=== PATIENT | female | born 1970 | race African-American/Black ===

== ENCOUNTER 2017-07-27 07:47 | Day surgery (SDC) | payer OTHER ==
[2017-07-27 08:03] VITALS: BMI 43.1
--- NOTE | 2017-07-27 08:42 | PDOC ---
History of Present Illness <Joseph Diego - Last Filed: 07/27/17 08:32> - History of Present Illness Initial Comments: 07/27/17 08:51 The patient is a 47 year old female, with a significant past medical history of asthma, biliary colic, renal colic, and kidney stones s/p stent, who presents to the ED for increased right lower abdominal pain secondary to known abdominal hernia sent by Dr. Iglesia Morocho for hernia repair today. The patient states she has some tenderness over her right lower quadrant near her hernia site. Secondarily, the patient states she has been experiencing vaginal bleeding for 2 days, suprapubic cramping on the first day, but denies having a period for the past seven months. The patient also reports she has had her renal stent for about a year secondary to moving and changing her urologist from Dr. Hidalgo to Dr. Garner. She states she is schedule for stent removal with Dr. Garner sometime next week. She states she has been NPO since midnight. She denies chest pain, shortness of breath, headache and dizziness. She denies fever, chills, nausea, vomit, diarrhea and constipation. She denies dysuria, frequency, urgency and hematuria. Allergies: penicillin and bactrim Past surgical history: renal stent Social history: Pt denies tobacco use or EtOH consumption PCP: Dr. Jesus Manuel Hidalgo Urologist: Dr. Garner <Joann West - Last Filed: 07/27/17 08:52> - General Chief Complaint: Pain, Acute Stated Complaint: R SIDED ABD PAIN Time Seen by Provider: 07/27/17 08:09 Past History - Past Medical History Anemia: Yes Cancer: No Cardiac Disorders: No CVA: No COPD: Yes (asthma) CHF: No Dementia: No Diabetes: No GI Disorders: No Disorders: Yes (KIdney stones) HTN: No Hypercholesterolemia: Yes Liver Disease: No Seizures: No Thyroid Disease: No - Surgical History Abdominal Surgery: No Appendectomy: No Cardiac Surgery: No Cholecystectomy: No Lung Surgery: No Neurologic Surgery: No Orthopedic Surgery: No - Immunization History Immunization Up to Date: Yes - Suicide/Smoking/Psychosocial Hx Smoking Status: No Smoking History: Never smoked Have you smoked in the past 12 months: No Number of Cigarettes Smoked Daily: 0 Information on smoking cessation initiated: No Hx Alcohol Use: No Drug/Substance Use Hx: No Substance Use Type: None <Joseph Diego - Last Filed: 07/27/17 08:32> <Joann West - Last Filed: 07/27/17 08:52> - Past Medical History Allergies/Adverse Reactions: Allergies Allergy/AdvReac Type Severity Reaction Status Date / Time Penicillins Allergy Mild Verified 07/27/17 07:55 sulfamethoxazole Allergy Mild Verified 07/27/17 07:55 [From Bactrim] trimethoprim [From Bactrim] Allergy Mild Verified 07/27/17 07:55 Home Medications: Ambulatory Orders Ciprofloxacin [Cipro (Restricted To Id)] 250 mg PO BID 12/26/15 Oxycodone HCl/Acetaminophen [Percocet 10-325 mg Tablet] 1 each PO Q6H PRN Review of Systems - Review of Systems Constitutional: No: Chills, Fever Respiratory: No: Cough, Shortness of Breath ABD/GI: Yes: See HPI. No: Constipated, Diarrhea : Yes: See HPI (vaginal spotting over last 24h). No: Dysuria, Frequency Integumentary: No: Bruising All Other Systems: Reviewed and Negative <Joseph Diego - Last Filed: 07/27/17 08:32> *Physical Exam - Vital Signs Last Vital Signs Temp Pulse Resp BP Pulse Ox 98.3 F 73 16 131/83 98 07/27/17 07:56 07/27/17 07:56 07/27/17 07:56 07/27/17 07:56 07/27/17 07:56 <Joseph Diego - Last Filed: 07/27/17 08:32> - Vital Signs Last Vital Signs Temp Pulse Resp BP Pulse Ox 98.3 F 73 16 131/83 98 07/27/17 07:56 07/27/17 07:56 07/27/17 07:56 07/27/17 07:56 07/27/17 07:56 - Physical Exam Comments: 07/27/17 08:52 GENERAL: The patient is awake, alert, and fully oriented, obese. in no acute distress. HEAD: Normal with no signs of trauma. EYES: Pupils equal, round and reactive to light, extraocular movements intact, sclera anicteric, conjunctiva clear with no pallor. ENT: Ears normal, nares patent, oropharynx clear without exudates. Moist mucous membranes. NECK: Normal range of motion, supple without lymphadenopathy, JVD, or masses. LUNGS: Breath sounds equal, clear to auscultation bilaterally. No wheeze/ crackles. HEART: Regular rate and rhythm, normal S1 and S2 without murmur or rub. ABDOMEN: (+) mild right mid to lower quadrant tenderness to palpation. No incarcerated hernia palpable. Soft/nondistended. BS wnl. No guarding or rebound. No palpable masses. No hepatosplenomegaly. EXTREMITIES: Normal range of motion, no edema. No clubbing or cyanosis. No cords, erythema, or tenderness. NEUROLOGICAL: Cranial nerves II through XII grossly intact. Normal speech, normal gait. PSYCH: Normal mood, normal affect. SKIN: Warm, Dry, normal turgor, no rashes or lesions noted. <Joann West - Last Filed: 07/27/17 08:52> Medical Decision Making - Medical Decision Making 07/27/17 08:34 A portion of this note was documented by scribe services under my direction. I have reviewed the details of the note, within reason, and agree with the documentation with the following case summary and management plan written by me. 47-year-old female presents with worsening right lower quadrant pain from known hernia, has been followed by Dr. Morocho with plans for operative intervention given increasing symptoms. On ROS, notes vaginal spotting over the last 24h, painless. LMP 7 months ago. Has indwelling ureteral stent for over one year 2/2 h/o nephrolithiasis, scheduled to have removal with Dr. Cruz. VSS well appearing, obese soft/nd. tender R mid and RLQ, no guarding/rebound no cvat pelvic exam deferred, no bleeding now 47y/o F with worsening symptoms of known hernia, no evidence of obstruction or incarceration on exam. Followed by Dr. Morocho, for OR today. Incidentally noted was breakthrough vaginal spotting since yesterday, LMP 7 months ago. 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 Morocho made aware. labs, ua iv access Accepted for OR by Dr. Morocho <Joseph Diego - Last Filed: 07/27/17 08:32> *DC/Admit/Observation/Transfer - Discharge Dispostion Admit: Yes <Joseph Diego - Last Filed: 07/27/17 08:32> - Attestations Scribe Attestion: 07/27/17 08:52 Documentation prepared by Joann West, acting as medical planner for Joseph Diego MD, <Joann West - Last Filed: 07/27/17 08:52> Diagnosis at time of Disposition: Abdominal hernia Qualifiers: Hernia type: unspecified Obstruction and gangrene presence: without obstruction or gangrene Recurrence: recurrent Qualified Code(s): K45.8 - Other specified abdominal hernia without obstruction or gangrene - Discharge Dispostion Condition at time of disposition: Fair - Referrals Referrals: Jesus Manuel Hidalgo MD [Primary Care Provider] - - Patient Instructions - Post Discharge Activity
[2017-07-27 09:48] LABS: BASOPHIL 0.4 % (0-2.0); EOSINOPHIL 3.2 % (0-4.5); MCH 24.7 pg (25.7-33.7); MCHC 31.8 g/dl (32.0-36.0); MEAN CELL VOLUME 77.8 fl (80-96); MEAN PLT VOLUME 8.3 fl (7.5-11.1); PLATELET COUNT 238 K/MM3 (134-434); RDW 18.2 % (11.6-15.6); WHITE BLOOD COUNT 5.6 K/mm3 (4.0-10.0)
[2017-07-27 10:10] LABS: INR 1.04 (0.82-1.09); PROTHROMBIN TIME (PATIENT) 11.8 SEC (9.98-11.88)
[2017-07-27 10:13] LABS: ACTIVATED PTT 34.4 SECONDS (26.9-34.4)
[2017-07-27 10:40] LABS: CALCIUM 8.9 mg/dL (8.5-10.1)
[2017-07-27 10:46] LABS: ALK PHOS 65 U/L (45-117); ANION GAP 11 (8-16); BILIRUBIN,TOTAL 0.2 mg/dL (0.2-1.0); CO2 23 mmol/L (21-32); CREATININE 1.8 mg/dL (0.55-1.02); GLUCOSE,RANDOM 95 mg/dL (74-106); SGOT/AST 8 U/L (15-37); SGPT/ALT 14 U/L (12-78)
--- NOTE | 2017-07-27 11:11 | CONSULT ---
Consult Consult Specialty:: Surgery Reason for Consultation:: Abdominal pain - History of Present Illness Chief Complaint: Abdominal pain History of Present Illness: 47 female presents to the ER for abdominal pain Mild nausea No vomiting Pain near her umbilicus Previously noted to have an umbilical hernia - History Source History Provided By: Patient Limitations to Obtaining History: No Limitations - Alcohol/Substance Use Hx Alcohol Use: No - Smoking History Smoking history: Never smoked Have you smoked in the past 12 months: No Aproximately how many cigarettes per day: 0 Home Medications - Allergies Allergies/Adverse Reactions: Allergies Allergy/AdvReac Type Severity Reaction Status Date / Time Penicillins Allergy Mild Verified 07/27/17 07:55 sulfamethoxazole Allergy Mild Verified 07/27/17 07:55 [From Bactrim] trimethoprim [From Bactrim] Allergy Mild Verified 07/27/17 07:55 - Home Medications Home Medications: Ambulatory Orders Oxycodone HCl/Acetaminophen [Percocet 10-325 mg Tablet] 1 each PO Q6H PRN Docusate Sodium [Colace -] 100 mg PO TID #90 capsule 07/27/17 Oxycodone HCl/Acetaminophen [Percocet 5-325 mg Tablet] 1 - 2 tab PO Q6H #28 tab MDD 4 07/27/17 Family Disease History - Family Disease History Family History: Unremarkable Review of Systems - Review of Systems Constitutional: denies: Chills, Fever HENT: reports: No Symptoms Neck: reports: No Symptoms Cardiovascular: reports: No Symptoms Respiratory: reports: No Symptoms Gastrointestinal: reports: Abdominal Pain, Nausea Neurological: denies: Change in LOC Pain Intensity: 3 Physical Exam Vital Signs: Vital Signs Temperature 98.3 F 07/27/17 07:56 Pulse Rate 73 07/27/17 07:56 Respiratory Rate 16 07/27/17 07:56 Blood Pressure 131/83 07/27/17 07:56 O2 Sat by Pulse Oximetry (%) 98 07/27/17 07:56 Constitutional: Yes: Calm HENT: Yes: WNL Neck: Yes: Supple Cardiovascular: Yes: Regular Rate and Rhythm Respiratory: Yes: CTA Bilaterally Gastrointestinal: Yes: Soft, Tenderness (Near umbilicus, + umbilical hernia with tenderness) Neurological: Yes: Alert, Oriented Labs: CBC, BMP 07/27/17 09:42 Problem List - Problems (1) Umbilical hernia Code(s): K42.9 - UMBILICAL HERNIA WITHOUT OBSTRUCTION OR GANGRENE Assessment/Plan Umbilical hernia with tenderness For repair with mesh
[2017-07-27 11:46] LABS: URINE APPEARANCE CLOUDY; URINE BILIRUBIN NEGATIVE (NEGATIVE); URINE BLOOD 3+ (NEGATIVE); URINE COLOR YELLOW; URINE GLUCOSE (UA) NEGATIVE (NEGATIVE); URINE KETONE NEGATIVE (NEGATIVE); URINE NITRITE POSITIVE (NEGATIVE); URINE UROBILINOGEN NEGATIVE mg/dL (0.2-1.0)
[2017-07-27 11:54] LABS: URINE PROTEIN 1+ (NEGATIVE)
[2017-07-27 12:32] LABS: URINE BACTERIA MANY /hpf (NONE SEEN); URINE RBC 649; URINE WBC 197
[2017-07-27] MEDS ORDERED: BUPIVACAINE HCL/PF 0.5% (5MG/ML) 10 ML VIAL ONE (14:18)
[2017-07-27] MEDS ORDERED: MIDAZOLAM HCL 2 MG/2 ML SINGLE DOSE VIAL ONE (14:21)
[2017-07-27] MEDS ORDERED: ROCURONIUM BROMIDE 50 MG/5 ML VIAL ONE (14:22)
[2017-07-27] MEDS ORDERED: PROPOFOL 20 ML ONE (14:22)
[2017-07-27] MEDS ORDERED: CLINDAMYCIN 900 MG PREMIX BAG IVPB ONE (14:45)
[2017-07-27] MEDS ORDERED: CLINDAMYCIN PHOSPHATE 600 MG/4 ML VIAL ONE (14:45)
[2017-07-27] MEDS ORDERED: ePHEDrine SULFATE 50 MG/1 ML AMPULE ONE (14:50)
[2017-07-27] MEDS ORDERED: LEVOFLOXACIN IVPB ONE (15:03)
[2017-07-27] MEDS ORDERED: BUPIVACAINE HCL/PF 0.5% (5MG/ML) 10 ML VIAL IJ ONE (17:03)
[2017-07-27] MEDS ORDERED: ONDANSETRON 4 MG/2 ML VIAL ONE (17:14)
--- NOTE | 2017-07-27 17:33 | OP ---
Operative Note - Note: Operative Date: 07/27/17 Pre-Operative Diagnosis: umbilical hernia Operation: robotic assisted umbilical hernia repair with mesh, Lysis of adhesion Surgeon: Iglesia Morocho Welding Production Supervisor: Yolie Wellington Anesthesia: General Estimated Blood Loss (mls): 30 Fluid Volume Replaced (mls): 1,200 Operative Report Dictated: Yes
--- NOTE | 2017-07-27 17:37 | SURG ---
Surgery Retail Service Representative Note Retail Service Representative: Yolie Wellington PA-C Date of Service: 07/27/17 Diagnosis: umbilical hernia Procedure: robotic assisted umbilical hernia repair with mesh, lysis of adhesions I was present for the entirety of the operative procedure. For further detail, please refer to operative report. Visit type - Case Type Case Type: ED Admission - Emergency Emergency Visit: Yes Care time: The patient presented to the Emergency Department on the above date and was hospitalized for further evaluation of their emergent condition. - New patient This patient is new to me today: Yes Date on this admission: 07/27/17
[2017-07-27] MEDS ORDERED: ONDANSETRON 4 MG/2 ML VIAL IVPUSH PRN (17:43)
[2017-07-27] MEDS ORDERED: D5-1/2NS+20 MEQ KCL - 20 MEQ/1,000 ML INFUS.BAG IV SCH (17:45)
[2017-07-27] MEDS ORDERED: oxyCODONE HCL 5 MG TABLET PO PRN (17:46)
[2017-07-27 17:54] LABS: URINE LEUK ESTERASE 3+ (NEGATIVE)
[2017-07-27] MEDS ORDERED: METOCLOPRAMIDE HCL INJECTION 10 MG/2 ML VIAL ONE (17:58)
[2017-07-27] MEDS ORDERED: METOCLOPRAMIDE HCL INJECTION 10 MG/2 ML VIAL IVPUSH ONE (18:20)
[2017-07-27] MEDS ORDERED: HYDROmorphone HCL CARPU-JECT 1 MG/1 ML DISP.SYRIN IVPB PRN (21:07)
[2017-07-28] MEDS: ACETAMINOPHEN 325 MG TABLET (FP) PO PRN ×2 (03:13→08:47)
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
[2017-07-28 11:05] VITALS: PULSE 78
[2017-07-28 12:39] VITALS: BP 123/66; TEMP 98
== END 2017-07-28 11:45 | disposition home or self-care (01) ==
LOC: JER 07:47 → JASUSAT 08:43 → J8W 21:33 → JASUSAT 07-28 11:45
PROVIDERS: ATTEND Surgery
PROC: 8E0W4CZ Robotic Assisted Procedure of Trunk Region, Percutaneous Endoscopic Approach (ICD-10-PCS; 2017-07-27)
PROC: 0WUF4JZ Supplement Abdominal Wall with Synthetic Substitute, Percutaneous Endoscopic Approach (ICD-10-PCS; principal; 2017-07-27 13:00)
DX: K42.9 Umbilical hernia without obstruction or gangrene (principal)
CPT/HCPCS: 49652; S2900; 36415; 80053; 81003; 81015; 84703; 85025; 85610; 85730; 86850; 86900; 86901; 94760; 99285-25

== ENCOUNTER 2017-09-19 05:56 | Emergency (ER) | payer OTHER ==
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
[2017-09-19 06:43] VITALS: BP 152/94; PULSE 80; TEMP 98.7; BMI 41.8
[2017-09-19] MEDS ORDERED: FLUORESCEIN NA 1 EA STRIP OD ONE (09:45)
[2017-09-19] MEDS ORDERED: FLUORESCEIN NA 1 EA STRIP ONE (09:48)
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
== END 2017-09-19 11:38 | disposition home or self-care (01) ==
LOC: JER 05:56
DX: S09.8XXA Other specified injuries of head, initial encounter (principal); H54.61 Unqualified visual loss, right eye, normal vision left eye; Y04.2XXA Assault by strike against or bumped into by another person, initial encounter; Y93.89 Activity, other specified; Y92.030 Kitchen in apartment as the place of occurrence of the external cause; Y99.8 Other external cause status; Y07.03 Male partner, perpetrator of maltreatment and neglect; J45.909 Unspecified asthma, uncomplicated; E78.00 Pure hypercholesterolemia, unspecified; Z87.442 Personal history of urinary calculi
CPT/HCPCS: 70450-TC; 70486-TC; 99283-25

== ENCOUNTER 2018-01-20 10:54 | Inpatient (IN) | payer OTHER ==
[2018-01-19 14:19] VITALS: BMI 39.9
[2018-01-20] MEDS ORDERED: PROPOFOL 20 ML ONE (12:01)
[2018-01-20] MEDS ORDERED: fentaNYL CITRATE 250 MCG/5 ML VIAL ONE (12:01)
[2018-01-20] MEDS ORDERED: MIDAZOLAM HCL 2 MG/2 ML SINGLE DOSE VIAL ONE (12:02)
[2018-01-20] MEDS ORDERED: ROCURONIUM BROMIDE 50 MG/5 ML VIAL ONE (12:02)
[2018-01-20] MEDS ORDERED: LIDOCAINE HCL/PF 2% SDV 5ML VIAL ONE (12:04)
--- NOTE | 2018-01-20 12:07 | HP ---
History & Physical Update - History History: No Change - Physical Physical: No Change - Assessment Assessment: No Change - Plan Plan: No Change (Initial H&P completed 01/04/18 and located in her paper chart. No new complaints or medications.)
[2018-01-20] MEDS ORDERED: CLINDAMYCIN PHOSPHATE 900 MG/6 ML VIAL IVPB ONE (12:43)
[2018-01-20] MEDS ORDERED: ONDANSETRON 4 MG/2 ML VIAL IVPUSH PRN ×2 (15:39→16:19)
[2018-01-20] MEDS ORDERED: ACETAMINOPHEN 325 MG TABLET (FP) PO PRN (15:39)
[2018-01-20] MEDS ORDERED: oxyCODONE HCL 5 MG TABLET PO PRN (15:51)
--- NOTE | 2018-01-20 15:53 | OP ---
Operative Note - Note: Operative Date: 01/20/18 Pre-Operative Diagnosis: Abdominal hernia and abdominal adhesions Operation: Exploratory laproscopy and lap lysis of adhesions, Ex-lap, lysis of adhesions, abd flap formation, primary abdominal hernia closure Surgeon: Iglesia Morocho Credit Collections Clerk: Kj Portillo Anesthesia: General Estimated Blood Loss (mls): 60 Drains & Tubes with Location: LUQ and LLQ Fluid Volume Replaced (mls): 750 Operative Report Dictated: Yes
--- NOTE | 2018-01-20 15:54 | SURG ---
Surgery Knife Changer Note Knife Changer: Kj Portillo PA-C Date of Service: 01/20/18 Diagnosis: abdominal hernia and abdominal adhesions Procedure: Exploratory laproscopy and lap lysis of adhesions, Ex-lap, lysis of adhesions, abd flap formation, primary abdominal hernia closure I was present for the entirety of the operative procedure. For further detail, please refer to operative report.
[2018-01-20] MEDS: LACTATED RINGERS SOLUTION 1,000 ML IV SCH ×2 (16:00→23:30)
--- NOTE | 2018-01-20 16:01 | OP ---
DATE OF OPERATION: 01/20/2018 SURGEON: Iglesia Morocho MD POST FRAMER: MATTHIAS Ross and Kj Saavedra. PREOPERATIVE DIAGNOSIS: Recurrent incisional/ventral hernia. POSTOPERATIVE DIAGNOSES: 1. Recurrent incisional/ventral hernia. 2. Dense intraabdominal adhesions. 3. Multiple small-bowel serosal defects. PROCEDURE: 1. Diagnostic laparoscopy. 2. Extensive laparoscopic lysis of adhesions. 3. Laparoscopic partial reduction of recurrent incisional/ventral hernia. 4. Exploratory laparotomy. 5. Extensive open lysis of adhesions. 6. Enterorrhaphy/repair of small-bowel serosal defects x4. 7. Bilateral fascial advancement flaps. 8. Open repair of recurrent incisional/ventral hernia. DRAINS: JEAN PAUL x2, one intraabdominal, one above the level of the fascia. ANESTHESIA: GET. ESTIMATED BLOOD LOSS: 100 mL REASON FOR PROCEDURE: This is a 47-year-old female who presented to the office for a recurrent incisional/ventral hernia with pain and bulge. Because of these complaints, different options were explained. She decided to proceed with a laparoscopic, possible open repair of this hernia with possible mesh. The risks and benefits of the procedure were explained. These included bleeding, infection, recurrence of hernia. She was explained that the incidence of recurrence was high because of her history of morbid obesity as well as her prior recurrence. She understood and wanted to continue with repair prior to any bariatric surgery which she does desire in the future. Other risks included injury to intraabdominal structures including bowel, colon, stomach, liver, spleen, as well as other intraabdominal organs; nerve injury; vessel injury; TN; DVT; PE; seroma; hematoma; anastomotic leak; fascial leak; wound dehiscence; and as some of the complications. She understood and signed informed consent. DESCRIPTION OF PROCEDURE: Patient was placed supine on the operative table. She underwent general endotracheal intubation. The abdomen was prepped and draped in usual sterile fashion. Timeout was performed. A 5-mm incision was made in the left upper quadrant, and Veress needle was inserted. Pneumoperitoneum was established. Subsequently, the Veress needle was removed, and a 5-mm optical trocar was placed under direct visualization. Immediately, it was noted that there was a large fascial defect consistent with a hernia. A 15-mm trocar was then placed in the left lateral abdominal wall and a 5-mm trocar placed in the left lower quadrant. Patient was placed in slight left lateral decubitus position. The hernia contents were grasped and careful lysis of adhesions performed. This took an extensive amount of time as the adhesions were noted to be quite dense and adherent. In addition, there was noted to be bowel that was adherent to both the fascial defect as well as to the skin and underlying abdominal wall. Further lysis of adhesions performed and a partial reduction of the hernia was able to be performed. However, because of the dense adhesions, it was felt that it was not safe to proceed laparoscopically. At this point, a conversion was made to an open exploratory laparotomy. A midline incision was made from below the umbilicus towards the sternum. Skin and subcutaneous tissue were dissected down to the level of the fascia. The fascia was opened. There were further dense intraabdominal adhesions noted. The bowel was freed carefully by lysing these adhesions. In addition, part of the abdominal wall had to be incised with a heavy scissor in order to free the bowel from it without injury to the bowel. Extensive lysis of adhesions was continued until all the bowel was freed. The bowel was then run in its entirety from the ligament of Treitz to the iieocecal ligament and backwards. Four small serosal defects were noted which were repaired with 3-0 silk sutures in Lembert fashion. No other defects were noted. No other injury was noted. The bowel was then placed within the abdominal cavity. Copious irrigation and suction were performed. A JEAN PAUL drain was placed in the intraabdominal cavity and exteriorized through the left lower quadrant. Bilateral advancement flaps were then performed by freeing the fascia from the overlying subcutaneous tissue because of tension from any fascial closure. Once this was performed in its entirety, the fascia was closed using two number 1 loop PDS sutures and secured. A second JEAN PAUL drain was placed above the level of the fascia. The overlying subcutaneous tissue was closed using 2-0 Vicryl, and the skin was closed using bony. The drains were sutured in place. The patient tolerated the procedure well, was transferred to recovery room in stable condition. Yue [id number] [email or web address]
[2018-01-20] MEDS ORDERED: PROMETHAZINE HCL 25 MG/1 ML VIAL IVPB PRN (16:19)
[2018-01-20] MEDS ORDERED: DEXAMETHASONE SOD PHOSPHATE 4 MG/1 ML VIAL IVPUSH ONE (16:30)
[2018-01-20] MEDS ORDERED: HYDROmorphone *PCA* 10MG/50ML DISP.SYRIN PCA ONE (17:04)
[2018-01-20] MEDS: HYDROmorphone *PCA* 10MG/50ML DISP.SYRIN PCA SCH (17:16)
[2018-01-20 18:53] LABS: HEMATOCRIT 31.2 % (32.4-45.2); HEMOGLOBIN 9.8 GM/dL (10.7-15.3); MCH 23.7 pg (25.7-33.7); MCHC 31.5 g/dl (32.0-36.0); MEAN CELL VOLUME 75.3 fl (80-96); MEAN PLT VOLUME 8.4 fl (7.5-11.1); PLATELET COUNT 382 K/MM3 (134-434); RBC 4.14 M/mm3 (3.60-5.2); RDW 19.1 % (11.6-15.6); WHITE BLOOD COUNT 22.9 K/mm3 (4.0-10.0)
[2018-01-20 19:10] LABS: ADD RBC MORPHOLOGY YES
[2018-01-20 19:37] LABS: ALBUMIN 3.6 g/dl (3.4-5.0); ANION GAP 11 (8-16); BLOOD UREA NITROGEN 32 mg/dL (7-18); CALCIUM 10.6 mg/dL (8.5-10.1); CHLORIDE 108 mmol/L (98-107); CO2 25 mmol/L (21-32); CREATININE 2.3 mg/dL (0.55-1.02); GLUCOSE,RANDOM 99 mg/dL (74-106); POTASSIUM 4.7 mmol/L (3.5-5.1); SGOT/AST 12 U/L (15-37); SGPT/ALT 13 U/L (12-78); SODIUM 144 mmol/L (136-145)
[2018-01-20 19:38] LABS: ALK PHOS 66 U/L (45-117); BILIRUBIN,TOTAL 0.3 mg/dL (0.2-1.0); TOT PROT 7.6 g/dl (6.4-8.2)
[2018-01-20 19:40] LABS: ANISOCYTOSIS 1+; PLATELET ESTIMATE ADEQUATE
[2018-01-21] MEDS: HYDROmorphone *PCA* 10MG/50ML DISP.SYRIN PCA SCH (02:35)
[2018-01-21 07:37] LABS: BASO % 0.2 % (0-2.0); EOS % 0.2 % (0-4.5); HEMATOCRIT 28.6 % (32.4-45.2); HEMOGLOBIN 8.9 GM/dL (10.7-15.3); LYMPH % 8.7 % (8-40); MCH 23.7 pg (25.7-33.7); MCHC 31.2 g/dl (32.0-36.0); MEAN CELL VOLUME 76.1 fl (80-96); MEAN PLT VOLUME 8.4 fl (7.5-11.1); MONO % 7.9 % (3.8-10.2); PLATELET COUNT 349 K/MM3 (134-434); RBC 3.76 M/mm3 (3.60-5.2); RDW 18.8 % (11.6-15.6); WHITE BLOOD COUNT 17.3 K/mm3 (4.0-10.0)
[2018-01-21 08:03] LABS: CHLORIDE 110 mmol/L (98-107); POTASSIUM 4.6 mmol/L (3.5-5.1); SODIUM 143 mmol/L (136-145)
[2018-01-21 08:36] LABS: ALBUMIN 3.1 g/dl (3.4-5.0); ALK PHOS 58 U/L (45-117); ANION GAP 9 (8-16); BILIRUBIN,TOTAL 0.4 mg/dL (0.2-1.0); BLOOD UREA NITROGEN 31 mg/dL (7-18); CALCIUM 9.5 mg/dL (8.5-10.1); CO2 24 mmol/L (21-32); CREATININE 2.1 mg/dL (0.55-1.02); GLUCOSE,RANDOM 108 mg/dL (74-106); SGOT/AST 9 U/L (15-37); SGPT/ALT 13 U/L (12-78)
--- NOTE | 2018-01-21 08:51 | PN ---
Progress Note (short form) - Note Progress Note: 47yo F s/p exlap, hernia repair, enterootomy repair, advancement flap POD#1. Pt complains of moderate abd pain, but pain is controlled with FIELD PROFESSIONAL. Pt tolerating clears. Was OOB and urinating. Pt denies fevers, chills. Last Vital Signs Temp Pulse Resp BP Pulse Ox 97.8 F 74 19 137/84 100 01/21/18 06:00 01/21/18 06:58 01/21/18 06:58 01/21/18 06:58 01/20/18 22:00 CBC, BMP 01/21/18 06:30 01/21/18 06:30 PE; General: A&O x 3 Abd soft, nondistended, mild tenderness, dressing in place over abd wall incision Ext: no edema <Kj Portillo - Last Filed: 01/21/18 08:55> - Note Progress Note: POD 1 Pain controlled Tolerating diet AVSS Abd soft, binder in place JEAN PAUL x 2 serosanguinous Ambulate Binder at all times JEAN PAUL to self suction <Iglesia Morocho - Last Filed: 01/21/18 18:19> Problem List - Problems (1) Abdominal hernia Assessment/Plan: 47yo F s/p Ex-lap, abd hernia repair, eterootomy repair, advancement flap POD 1. WBC: 22---> 17 most likely reactionary postop -CBC and CMP tomorrow to trend WBC and Hgb -Continue FIELD PROFESSIONAL per pain management recommendations will work towards converting to PO pain meds. -advance diet as tolerated -OOB as tolerated -incentive spirometer -plan discussed with Dr. Morocho who agrees with plan Code(s): K46.9 - UNSPECIFIED ABDOMINAL HERNIA WITHOUT OBSTRUCTION OR GANGRENE QualifierTitle: Hernia type: unspecified Obstruction and gangrene presence: without obstruction or gangrene Recurrence: recurrent Qualified Code(s): K45.8 - Other specified abdominal hernia without obstruction or gangrene <Kj Portillo - Last Filed: 01/21/18 08:55>
[2018-01-21] MEDS: CYCLOBENZAPRINE HCL 10 MG TABLET (FP) PO SCH (11:40)
[2018-01-21] MEDS: HEPARIN NA (PORCINE) 5,000 UNITS/ML 1ML VIAL SQ SCH ×2 (11:40→21:50)
--- NOTE | 2018-01-21 12:34 | PN ---
Progress Note, Physician Chief Complaint: s/p open ventral hernia repair. 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 - Current Medication List Current Medications: Active Medications Acetaminophen (Tylenol -) 650 mg PO Q4H PRN PRN Reason: FEVER Acetaminophen (Tylenol -) 325 mg PO Q4H PRN PRN Reason: PAIN LEVEL 4 - 6 Acetaminophen (Tylenol -) 650 mg PO Q4H PRN PRN Reason: PAIN LEVEL 6-10 Cyclobenzaprine HCl (Flexeril -) 10 mg PO DAILY [facility] Last Admin: 01/21/18 11:40 Dose: Not Given Diphenhydramine HCl (Benadryl Injection -) 25 mg IVPB Q4H PRN PRN Reason: FOR ITCHING Heparin Sodium (Porcine) (Heparin -) 5,000 unit SQ BID [facility] Last Admin: 01/21/18 11:40 Dose: 5,000 unit Hydromorphone HCl (Dilaudid Carpet Weaver -) 10 mg TECHNICAL RECRUITER TECHNICAL RECRUITER [facility] PRN Reason: Protocol Stop: 01/27/18 16:20 Last Admin: 01/21/18 02:35 Dose: 10 mg Lactated Ringer's (Lactated Ringers Solution) 1,000 mls @ 125 mls/hr IV ASDIR [facility] Last Admin: 01/20/18 23:30 Dose: 125 mls/hr Ondansetron HCl (Zofran Injection) 4 mg IVPUSH Q4H PRN PRN Reason: NAUSEA AND/OR VOMITING Oxycodone HCl (Roxicodone -) 5 mg PO Q4H PRN PRN Reason: PAIN LEVEL 4 - 6 Promethazine HCl (Phenergan Injection -) 12.5 mg IVPB Q6H PRN PRN Reason: NAUSEA AND/OR VOMITING - Objective Vital Signs: Vital Signs Temperature 97.8 F 01/21/18 06:00 Pulse Rate 74 01/21/18 06:58 Respiratory Rate 19 01/21/18 06:58 Blood Pressure 137/84 01/21/18 06:58 O2 Sat by Pulse Oximetry (%) 100 01/20/18 22:00 Constitutional: Yes: Well Nourished Cardiovascular: Yes: WNL Respiratory: Yes: WNL Gastrointestinal: Yes: WNL Labs: CBC, BMP 01/21/18 06:30 01/21/18 06:30 Assessment/Plan no adverse effect of anesthetic, pain helped by welding pantograph operator, only started clears today, will continue welding pantograph operator until tomorrow if tolerating diet. Dept of anesthesia will continue to follow
[2018-01-22] MEDS: LACTATED RINGERS SOLUTION 1,000 ML IV SCH ×2 (01:20→21:24)
[2018-01-22] MEDS: HYDROmorphone *PCA* 10MG/50ML DISP.SYRIN PCA SCH ×3 (03:45→07:38)
[2018-01-22] MEDS ORDERED: ONDANSETRON 4 MG/2 ML VIAL IVPUSH PRN (07:25)
[2018-01-22] MEDS ORDERED: ACETAMINOPHEN 325 MG TABLET (FP) PO PRN (07:25)
[2018-01-22] MEDS: CYCLOBENZAPRINE HCL 10 MG TABLET (FP) PO SCH (09:51)
[2018-01-22] MEDS: HEPARIN NA (PORCINE) 5,000 UNITS/ML 1ML VIAL SQ SCH ×3 (09:51→21:21)
[2018-01-22 10:34] LABS: BASO % 0.3 % (0-2.0); EOS % 4.4 % (0-4.5); HEMATOCRIT 24.8 % (32.4-45.2); HEMOGLOBIN 8.1 GM/dL (10.7-15.3); LYMPH % 10.7 % (8-40); MCH 24.5 pg (25.7-33.7); MCHC 32.7 g/dl (32.0-36.0); MEAN CELL VOLUME 74.8 fl (80-96); MEAN PLT VOLUME 8.6 fl (7.5-11.1); MONO % 12.1 % (3.8-10.2); NEUT % 72.5 % (42.8-82.8); PLATELET COUNT 286 K/MM3 (134-434); RBC 3.31 M/mm3 (3.60-5.2); RDW 18.7 % (11.6-15.6); WHITE BLOOD COUNT 11.3 K/mm3 (4.0-10.0)
[2018-01-22 10:57] LABS: ALBUMIN 2.9 g/dl (3.4-5.0); ALK PHOS 52 U/L (45-117); ANION GAP 7 (8-16); BILIRUBIN,TOTAL 0.5 mg/dL (0.2-1.0); BLOOD UREA NITROGEN 20 mg/dL (7-18); CALCIUM 9.1 mg/dL (8.5-10.1); CHLORIDE 108 mmol/L (98-107); CO2 27 mmol/L (21-32); CREATININE 1.8 mg/dL (0.55-1.02); GLUCOSE,RANDOM 94 mg/dL (74-106); POTASSIUM 4.1 mmol/L (3.5-5.1); SGOT/AST 10 U/L (15-37); SGPT/ALT 13 U/L (12-78); SODIUM 142 mmol/L (136-145); TOT PROT 6.6 g/dl (6.4-8.2)
--- NOTE | 2018-01-22 14:12 | PN ---
Progress Note (short form) - Note Progress Note: Anesthesia MARINE ERECTOR round POD#2. s/p open ventral hernia repair. VSS. Ambulating, tolerating po clears. Pain scale1-4/10. Will D/C MARINE ERECTOR. Can resume Po analgetics. Signed off.
[2018-01-22] MEDS: oxyCODONE HCL 5 MG TABLET PO PRN ×2 (14:56→21:21)
[2018-01-22] MEDS: ACETAMINOPHEN 325 MG TABLET (FP) PO PRN (21:21)
[2018-01-23] MEDS: oxyCODONE HCL 5 MG TABLET PO PRN ×3 (02:31→13:40)
[2018-01-23] MEDS: ACETAMINOPHEN 325 MG TABLET (FP) PO PRN ×4 (02:31→15:35)
[2018-01-23] MEDS: LACTATED RINGERS SOLUTION 1,000 ML IV SCH ×2 (05:30→20:28)
--- NOTE | 2018-01-23 07:19 | PN ---
Progress Note (short form) - Note Progress Note: No acute events Pain controlled Tolerating diet Vital Signs Period Temp Pulse Resp BP Sys/Barker Pulse Ox Last 24 Hr 98.8 F-99.7 F 95-96 20-21 134-157/78-92 Abd soft, wound c/d/i, bony intact JEAN PAUL x 2 serosanguinous, minimal CBC, BMP 01/22/18 09:29 01/22/18 09:29 Abdominal binder Ambulate Soft diet Discharge planning
[2018-01-23 08:37] LABS: BASO % 0.3 % (0-2.0); EOS % 5.8 % (0-4.5); HEMATOCRIT 23.8 % (32.4-45.2); HEMOGLOBIN 7.8 GM/dL (10.7-15.3); MCH 24.3 pg (25.7-33.7); MCHC 32.7 g/dl (32.0-36.0); MEAN CELL VOLUME 74.4 fl (80-96); MEAN PLT VOLUME 8.2 fl (7.5-11.1); MONO % 10.5 % (3.8-10.2); NEUT % 71.4 % (42.8-82.8); PLATELET COUNT 266 K/MM3 (134-434); RBC 3.21 M/mm3 (3.60-5.2); RDW 18.9 % (11.6-15.6)
[2018-01-23 09:01] LABS: ANION GAP 6 (8-16); BLOOD UREA NITROGEN 16 mg/dL (7-18); CALCIUM 9.3 mg/dL (8.5-10.1); CHLORIDE 107 mmol/L (98-107); CO2 30 mmol/L (21-32); CREATININE 1.8 mg/dL (0.55-1.02); GLUCOSE,RANDOM 93 mg/dL (74-106); SODIUM 143 mmol/L (136-145)
[2018-01-23] MEDS: HEPARIN NA (PORCINE) 5,000 UNITS/ML 1ML VIAL SQ SCH ×2 (09:33→21:17)
[2018-01-23] MEDS: CYCLOBENZAPRINE HCL 10 MG TABLET (FP) PO SCH (09:35)
[2018-01-24] MEDS: ACETAMINOPHEN 325 MG TABLET (FP) PO PRN (07:25)
[2018-01-24] MEDS: oxyCODONE HCL 5 MG TABLET PO PRN (07:26)
[2018-01-24] MEDS: HEPARIN NA (PORCINE) 5,000 UNITS/ML 1ML VIAL SQ SCH ×2 (10:04→21:41)
[2018-01-24] MEDS: CYCLOBENZAPRINE HCL 10 MG TABLET (FP) PO SCH (10:04)
--- NOTE | 2018-01-24 10:26 | PN ---
Progress Note (short form) - Note Progress Note: POD #4 Alert. Doing well. She's OOB and ambulating unassisted. Tolerating soft PO diet. Voiding spontaneously. Denies n/v/f/c, CP, SOB Last Vital Signs Temp Pulse Resp BP Pulse Ox 98.6 F 87 18 147/83 100 01/24/18 10:00 01/24/18 10:00 01/24/18 10:00 01/24/18 10:00 01/23/18 22:27 H/H TREND 01/20/18 01/21/18 01/22/18 01/23/18 17:40 06:30 09:29 08:00 Hgb 9.8 8.9 8.1 7.8 Hct 31.2 28.6 24.8 23.8 Gen: alert. nad Abd: Obese habitus. dressing c/d/i. RAMIN x 2 minimal output LE: scds bilat. nt Problem List - Problems (1) Abdominal hernia Assessment/Plan: POD #4 s/p Laprascopic converted to open recurrent hernia repair, lysis of adhesions, abd advancement flaps. H/H drifting down Cont OOB and ambulate Low sodium diet 1 ramin dc'd on rounds, she will go home with remaining RAMIN and will be remoed in office ABD binder 1 PRBC to be transfused CBC to be drawn 4 hours after transfusion. Aboe plan discussed with Dr. Morocho and agrees Code(s): K46.9 - UNSPECIFIED ABDOMINAL HERNIA WITHOUT OBSTRUCTION OR GANGRENE Qualifiers: Hernia type: unspecified Obstruction and gangrene presence: without obstruction or gangrene Recurrence: recurrent Qualified Code(s): K45.8 - Other specified abdominal hernia without obstruction or gangrene
[2018-01-24] MEDS: LACTATED RINGERS SOLUTION 1,000 ML IV SCH (19:03)
[2018-01-24 22:00] LABS: HEMATOCRIT 29.4 % (32.4-45.2); HEMOGLOBIN 9.2 GM/dL (10.7-15.3); MCH 23.3 pg (25.7-33.7); MCHC 31.3 g/dl (32.0-36.0); MEAN CELL VOLUME 74.3 fl (80-96); MEAN PLT VOLUME 7.7 fl (7.5-11.1); PLATELET COUNT 321 K/MM3 (134-434); RBC 3.96 M/mm3 (3.60-5.2); RDW 18.2 % (11.6-15.6); WHITE BLOOD COUNT 12.1 K/mm3 (4.0-10.0)
--- NOTE | 2018-01-24 22:50 | CONSULT ---
Consult - History of Present Illness History of Present Illness: Pt is a 47 morbidly obese female w/ PMH significant for asthma, anemia, nephrolithiasis (s/p Lt stent placement) and chronic renal insufficiency. Pt underwent hernia repair and lysis of adhesion (POD # 4) w/ JEAN PAUL drainage tube. Pt had complained earlier today of chest pain however she states that she does not have any chest pain at this time. Pt is very emotional and crying and states that she just is not feeling herself and she is scared bc she is not feeling herself. Pt denies any chest pain today? but said she has been nauseous and had episode of vomiting today. Pt states that she is not eating bc she is afraid something will happen?. Pt denies any [place]/palpitations/abdominal pain/ dysuria/hematuria. Pt is awake and orientated to person place and time. Pt is being transfused PRBC's. 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 Pulmonary: Yes: Asthma Renal/: Yes: Renal Failure, Renal Calculi ...LMP Comment: >1year - Past Surgical History Past Surgical History: Yes: Hernia Repair Additional Surgical History: Lt ureteral stent - Alcohol/Substance Use Hx Alcohol Use: No - Smoking History Smoking history: Never smoked Have you smoked in the past 12 months: No Aproximately how many cigarettes per day: 0 Home Medications - Allergies Allergies/Adverse Reactions: Allergies Allergy/AdvReac Type Severity Reaction Status Date / Time Penicillins Allergy Mild Verified 01/20/18 11:32 sulfamethoxazole Allergy Mild Verified 01/20/18 11:32 [From Bactrim] trimethoprim [From Bactrim] Allergy Mild Verified 01/20/18 11:32 - Home Medications Home Medications: Ambulatory Orders Oxycodone HCl/Acetaminophen [Percocet 10-325 mg Tablet] 1 each PO Q6H PRN Cyclobenzaprine HCl [Flexeril 10 mg] 10 mg PO DAILY 01/20/18 Docusate Sodium [Colace -] 100 mg PO TID #90 capsule 01/20/18 Oxycodone HCl/Acetaminophen [Percocet 5-325 mg Tablet] 1 - 2 tab PO Q6H #28 tab MDD 4 01/20/18 Family Disease History - Family Disease History Family History: Unremarkable Review of Systems - Review of Systems HENT: reports: No Symptoms Neck: reports: No Symptoms Cardiovascular: reports: No Symptoms Respiratory: reports: No Symptoms Gastrointestinal: reports: Nausea, Vomiting Genitourinary: reports: No Symptoms Musculoskeletal: reports: No Symptoms Neurological: reports: Confusion Physical Exam Vital Signs: Vital Signs Temperature 98.3 F 01/24/18 20:16 Pulse Rate 91 H 01/24/18 20:16 Respiratory Rate 18 01/24/18 20:16 Blood Pressure 153/92 01/24/18 20:16 O2 Sat by Pulse Oximetry (%) 98 01/24/18 20:13 Constitutional: Yes: Well Nourished HENT: Yes: WNL Neck: Yes: WNL, Supple Cardiovascular: Yes: WNL, Regular Rate and Rhythm Respiratory: Yes: WNL, Regular, CTA Bilaterally Gastrointestinal: Yes: Normal Bowel Sounds, Soft, Other ((+) JEAN PAUL drainage tube) Extremities: Yes: WNL Edema: No Neurological: Yes: WNL, Alert, Oriented ...Motor Strength: WNL Labs: CBC, BMP 01/24/18 21:30 01/23/18 08:00 Problem List - Problems (1) Chest pain Assessment/Plan: ?unclear etiology Serial cpk/troponin Check echo Code(s): R07.9 - CHEST PAIN, UNSPECIFIED (2) Confusion Assessment/Plan: Check ct scan head ?Due to pain meds DC oxycodone and observe Repeat WBC in am Code(s): R41.0 - DISORIENTATION, UNSPECIFIED (3) Abdominal hernia Assessment/Plan: S/P ventral hernia repair/lysis of adhesions As per surgery Code(s): K46.9 - UNSPECIFIED ABDOMINAL HERNIA WITHOUT OBSTRUCTION OR GANGRENE Qualifiers: Hernia type: unspecified Obstruction and gangrene presence: without obstruction or gangrene Recurrence: recurrent Qualified Code(s): K45.8 - Other specified abdominal hernia without obstruction or gangrene (4) Asthma Assessment/Plan: Stable Code(s): J45.909 - UNSPECIFIED ASTHMA, UNCOMPLICATED (5) Acute on chronic renal insufficiency Assessment/Plan: Spoke w/ pt that she needs to f/u w/ uro as outpt for removal of lt uretral stent Bun/creatinine improved after IV hydration Code(s): N28.9 - DISORDER OF KIDNEY AND URETER, UNSPECIFIED; N18.9 - CHRONIC KIDNEY DISEASE, UNSPECIFIED (6) Anemia Assessment/Plan: ?Dilutional Pt transfused PRBC's Check H/H in am DC IVF Code(s): D64.9 - ANEMIA, UNSPECIFIED
[2018-01-24] MEDS ORDERED: traMADol HCL 50 MG TABLET PO PRN (22:58)
[2018-01-25] MEDS ORDERED: SODIUM CHLORIDE 0.45% 1,000 ML IV SCH (08:15)
[2018-01-25] MEDS: CYCLOBENZAPRINE HCL 10 MG TABLET (FP) PO SCH (10:01)
[2018-01-25] MEDS: HEPARIN NA (PORCINE) 5,000 UNITS/ML 1ML VIAL SQ SCH ×2 (10:02→22:14)
--- NOTE | 2018-01-25 11:58 | EKG ---
Test Reason : Blood Pressure : / mmHG Vent. Rate : 088 BPM Atrial Rate : 088 BPM P-R Int : 136 ms QRS Dur : 086 ms QT Int : 354 ms P-R-T Axes : 053 -21 013 degrees QTc Int : 428 ms NORMAL SINUS RHYTHM NORMAL ECG NO PREVIOUS ECGS AVAILABLE Confirmed by MD LAURENCE, VICENTE ([id number]) on 01/25/2018 11:57:49 AM Referred By: Confirmed By:VICENTE DANG MD
--- NOTE | 2018-01-25 16:00 | PN ---
Progress Note (short form) - Note Progress Note: Had a few episodes of vomiting Passing gas Pain controlled CT A/P ordered for vomiting Vital Signs Period Temp Pulse Resp BP Sys/Barker Pulse Ox Last 24 Hr 98.1 F-98.3 F 75-91 18-20 153-158/80-92 98 Abd soft, Tan serosanguinous, wound c/d/i CBC, BMP 01/24/18 21:30 01/23/18 08:00 CT A/P: No obstruction, hernia repair intact, no abscess, contrast in colon Ambulate No further vomiting episodes since Diet
[2018-01-25] MEDS: ACETAMINOPHEN 325 MG TABLET (FP) PO PRN (16:58)
--- NOTE | 2018-01-25 21:30 | PN ---
Progress Note, Physician History of Present Illness: Pt w/ vomiting today - Current Medication List Current Medications: Active Medications Acetaminophen (Tylenol -) 325 mg PO Q4H PRN PRN Reason: PAIN LEVEL 4 - 6 Last Admin: 01/24/18 07:25 Dose: 325 mg Acetaminophen (Tylenol -) 650 mg PO Q4H PRN PRN Reason: PAIN LEVEL 6-10 Last Admin: 01/25/18 16:58 Dose: 650 mg Acetaminophen (Tylenol -) 650 mg PO Q4H PRN PRN Reason: FEVER Cyclobenzaprine HCl (Flexeril -) 10 mg PO DAILY [facility] Last Admin: 01/25/18 10:01 Dose: Not Given Diphenhydramine HCl (Benadryl Injection -) 25 mg IVPB Q4H PRN PRN Reason: FOR ITCHING Heparin Sodium (Porcine) (Heparin -) 5,000 unit SQ BID [facility] Last Admin: 01/25/18 10:02 Dose: Not Given Sodium Chloride (1/2 Normal Saline) 1,000 mls @ 100 mls/hr IV ASDIR [facility] Last Admin: 01/25/18 15:00 Dose: 100 mls/hr Ondansetron HCl (Zofran Injection) 4 mg IVPUSH Q4H PRN PRN Reason: NAUSEA AND/OR VOMITING Last Admin: 01/24/18 13:08 Dose: 4 mg Tramadol HCl (Ultram -) 50 mg PO Q6H PRN PRN Reason: pain - Objective Vital Signs: Vital Signs Temperature 98.1 F 01/25/18 10:00 Pulse Rate 87 01/25/18 10:00 Respiratory Rate 18 01/25/18 10:00 Blood Pressure 158/80 01/25/18 10:00 O2 Sat by Pulse Oximetry (%) 98 01/25/18 10:00 Cardiovascular: Yes: WNL, Regular Rate and Rhythm Respiratory: Yes: WNL, Regular, CTA Bilaterally Gastrointestinal: Yes: Normal Bowel Sounds, Soft, Other ((+) JEAN PAUL drainage tube) Labs: CBC, BMP 01/24/18 21:30 01/23/18 08:00 Problem List - Problems (1) Abdominal hernia Assessment/Plan: S/P ventral hernia repair/lysis of adhesions Ct scan abd noted Code(s): K46.9 - UNSPECIFIED ABDOMINAL HERNIA WITHOUT OBSTRUCTION OR GANGRENE Qualifiers: Hernia type: unspecified Obstruction and gangrene presence: without obstruction or gangrene Recurrence: recurrent Qualified Code(s): K45.8 - Other specified abdominal hernia without obstruction or gangrene (2) Asthma Code(s): J45.909 - UNSPECIFIED ASTHMA, UNCOMPLICATED (3) Acute on chronic renal insufficiency Code(s): N28.9 - DISORDER OF KIDNEY AND URETER, UNSPECIFIED; N18.9 - CHRONIC KIDNEY DISEASE, UNSPECIFIED (4) Anemia Code(s): D64.9 - ANEMIA, UNSPECIFIED (5) Confusion Assessment/Plan: Pt is asymptomatic and no further confusion Ct scan head was unremarkable ?Due to pain meds DC oxycodone and observe Pt refused labs Code(s): R41.0 - DISORIENTATION, UNSPECIFIED (6) Chest pain Assessment/Plan: Resolved ?unclear etiology Code(s): R07.9 - CHEST PAIN, UNSPECIFIED
[2018-01-25 22:22] VITALS: BP 159/86; PULSE 78; TEMP 98.7
[2018-01-26 08:24] LABS: BASO % 0.3 % (0-2.0); EOS % 4.7 % (0-4.5); HEMOGLOBIN 9.4 GM/dL (10.7-15.3); LYMPH % 10.9 % (8-40); MCH 23.5 pg (25.7-33.7); MCHC 31.3 g/dl (32.0-36.0); MEAN CELL VOLUME 75.1 fl (80-96); MEAN PLT VOLUME 8.5 fl (7.5-11.1); MONO % 9.2 % (3.8-10.2); NEUT % 74.9 % (42.8-82.8); PLATELET COUNT 343 K/MM3 (134-434); RBC 3.99 M/mm3 (3.60-5.2); RDW 18.1 % (11.6-15.6); WHITE BLOOD COUNT 12.5 K/mm3 (4.0-10.0)
[2018-01-26 08:34] LABS: CHLORIDE 107 mmol/L (98-107); POTASSIUM 3.4 mmol/L (3.5-5.1); SODIUM 143 mmol/L (136-145)
[2018-01-26 08:54] LABS: ALBUMIN 2.7 g/dl (3.4-5.0); ALK PHOS 60 U/L (45-117); ANION GAP 10 (8-16); BILIRUBIN,TOTAL 0.3 mg/dL (0.2-1.0); BLOOD UREA NITROGEN 16 mg/dL (7-18); CALCIUM 9.6 mg/dL (8.5-10.1); CO2 26 mmol/L (21-32); CREATININE 1.8 mg/dL (0.55-1.02); GLUCOSE,RANDOM 111 mg/dL (74-106); SGOT/AST 9 U/L (15-37); SGPT/ALT 14 U/L (12-78); TOT PROT 7.2 g/dl (6.4-8.2)
--- NOTE | 2018-01-26 10:15 | PN ---
Progress Note (short form) - Note Progress Note: POD #6 Alert. Felling much better s/p blood transfusion x1 two days ago. Complete resolution of CP. No more vomiting. Tolerating PO diet. OOB and ambulating unassisted. Voiding/stooling spontaneously. Last Vital Signs Temp Pulse Resp BP Pulse Ox 98.7 F 78 20 159/86 98 01/25/18 22:20 01/25/18 22:20 01/25/18 22:20 01/25/18 22:20 01/25/18 21:00 CBC, BMP 01/26/18 07:50 01/26/18 07:50 Gen: alert ABD: midline incision bony intact without signs of infection. LE: soft. nt bilat. Problem List - Problems (1) Abdominal hernia Assessment/Plan: Remaining JEAN PAUL weir'christine on rounds. Cleared for discharge. Patient to f/u with Arad in 1 week. Pain scripts escribed. Code(s): K46.9 - UNSPECIFIED ABDOMINAL HERNIA WITHOUT OBSTRUCTION OR GANGRENE Qualifiers: Hernia type: unspecified Obstruction and gangrene presence: without obstruction or gangrene Recurrence: recurrent Qualified Code(s): K45.8 - Other specified abdominal hernia without obstruction or gangrene
[2018-01-26] MEDS: HEPARIN NA (PORCINE) 5,000 UNITS/ML 1ML VIAL SQ SCH (10:25)
[2018-01-26] MEDS: CYCLOBENZAPRINE HCL 10 MG TABLET (FP) PO SCH (10:25)
--- NOTE | 2018-01-31 21:27 | DS ---
Physical Examination Vital Signs: Vital Signs Temperature 98.7 F 01/25/18 22:20 Pulse Rate 78 01/25/18 22:20 Respiratory Rate 20 01/25/18 22:20 Blood Pressure 159/86 01/25/18 22:20 O2 Sat by Pulse Oximetry (%) 98 01/26/18 09:00 Labs: CBC, BMP 01/26/18 07:50 01/26/18 07:50 Discharge Summary Reason For Visit: UMBILICAL HERNIA Condition: Stable - Instructions Diet, Activity, Other Instructions: Post Operative Instructions Physical activity Resume your normal everyday activity as tolerated no heavy lifting or exercise until seen by your surgeon. You may walk unlimited amounts of and climb stairs. You may resume driving the car when you feel safe and comfortable behind the wheel. Wound care If you have a bandage, leave it on, and keep dry for 48 - 72 hours. After that time discard the outer bandage. If there are tapes on the skin under the outer bandage, leave them in place. They will peel off in the next 7 to 10 days. Do Not peel them off. You may shower 2 days after surgery. Diet There are no dietary restrictions. Eat healthy, high-fiber foods. Drink 6 to 8 glasses of liquid each day. This will assist in keeping your bowels are regular. Pain management You may take Tylenol or acetaminophen or Ibuprofen (for example, Motrin, Advil etc.) Any pain prescription medication ordered should be taken as prescribed for moderate to severe pain. Call Dr. Morocho for any of the following: Severe pain not relieved by medication Fever of 101 or higher Excessive bleeding or drainage on dressing Inability to urinate Call the office for a post operative appointment in 7 - 10 days. Referrals: Iglesia Morocho MD [Staff Physician] - Disposition: HOME - Home Medications Comprehensive Discharge Medication List: Ambulatory Orders Oxycodone HCl/Acetaminophen [Percocet 10-325 mg Tablet] 1 each PO Q6H PRN Cyclobenzaprine HCl [Flexeril 10 mg] 10 mg PO DAILY 01/20/18 Docusate Sodium [Colace -] 100 mg PO TID #90 capsule 01/20/18 Oxycodone HCl/Acetaminophen [Percocet 5-325 mg Tablet] 1 - 2 tab PO Q6H #28 tab MDD 4 01/20/18
== END 2018-01-26 11:05 | disposition home or self-care (01) | DRG 223 ==
LOC: JASU-SURG 10:54 → JSAMEDAYSX 15:40 → J6S 20:41
PROVIDERS: ADMIT Surgery; ATTEND Surgery
PROC: 0DQ80ZZ Repair Small Intestine, Open Approach (ICD-10-PCS; 2018-01-20)
PROC: 0DNW4ZZ Release Peritoneum, Percutaneous Endoscopic Approach (ICD-10-PCS; 2018-01-20)
PROC: 0JNC0ZZ Release Pelvic Region Subcutaneous Tissue and Fascia, Open Approach (ICD-10-PCS; 2018-01-20)
PROC: 0WQF4ZZ Repair Abdominal Wall, Percutaneous Endoscopic Approach (ICD-10-PCS; principal; 2018-01-20 13:00)
PROC: 30233N1 Transfusion of Nonautologous Red Blood Cells into Peripheral Vein, Percutaneous Approach (ICD-10-PCS; 2018-01-24)
DX: K43.2 Incisional hernia without obstruction or gangrene (principal); R41.0 Disorientation, unspecified; N28.9 Disorder of kidney and ureter, unspecified; N18.9 Chronic kidney disease, unspecified; K66.0 Peritoneal adhesions (postprocedural) (postinfection); D64.9 Anemia, unspecified; E66.01 Morbid (severe) obesity due to excess calories; Z68.39 Body mass index [BMI] 39.0-39.9, adult
CPT/HCPCS: 36415; 36430; 70450-TC; 74176-TC; 80048; 80053; 82550; 84484; 84703; 85025; 85027; 86850; 86900; 86901; 86922; 93005; 93010; 93306-TC; 94760; J1644; P9038; P9058

== ENCOUNTER 2018-02-04 17:34 | Emergency (ER) | payer OTHER ==
[2018-02-04 18:01] VITALS: BP 165/91; PULSE 96; TEMP 98.6; BMI 41.5
[2018-02-04] MEDS ORDERED: SODIUM CHLORIDE 1,000 ML IV ONE (18:18)
[2018-02-04] MEDS ORDERED: METOCLOPRAMIDE HCL INJECTION 10 MG/2 ML VIAL IVPUSH ONE (18:18)
--- NOTE | 2018-02-04 18:21 | PDOC ---
History of Present Illness <Harish Lee - Last Filed: 02/04/18 18:44> - General History Source: Patient Exam Limitations: No Limitations - History of Present Illness Initial Comments: 02/04/18 18:52 The patient is a 47 year old female with a significant PMH of recent umbilical hernia repair (01/20/18), anemia, asthma, and hyperlipidemia who presents to the emergency department with persistent vomiting and headache beginning approximately this morning. The patient reports waking up with a mild frontal headache which has progressively worsened to a pounding, frontal headache throughout the day with associated photophobia. The patient also states she has been persistently vomiting and has not been able to tolerate PO intake today. The patient notes she had an umbilical hernia repair at 01/20/18 in which bony were used. She endorses decreased sleep since the surgery. The patient denies abdominal pain. The patient denies numbness or tingling. She denies vision changes. The patient denies chest pain, shortness of breath, headache and dizziness. Denies fever, chills, diarrhea and constipation. Denies dysuria, frequency, urgency and hematuria. Allergies: NKA Past surgical history: Hernia repairs x2, umbilical repair on 01/20/18. Social history: No reported cigarette, alcohol, or drug use. PCP: None reported. Surgeon: Dr. Morocho <Riky Zimmerman - Last Filed: 02/04/18 18:52> <Deyanira Crooks - Last Filed: 02/05/18 05:02> <Davina Chavez - Last Filed: 02/07/18 15:56> - General Chief Complaint: Headache Stated Complaint: HEADACHE,VOMITING Time Seen by Provider: 02/04/18 18:18 Past History <Harish Lee - Last Filed: 02/04/18 18:44> - Past Medical History Anemia: Yes Asthma: Yes Cancer: No Cardiac Disorders: No CVA: Yes (2yrs ago-left weakness occas) COPD: No CHF: No Dementia: No Diabetes: No GI Disorders: No Disorders: Yes (KIdney stones) HTN: No Hypercholesterolemia: Yes Liver Disease: No Seizures: No Thyroid Disease: No - Surgical History Abdominal Surgery: Yes (hernia repair last year, umbilical hernia repair 2017) Appendectomy: No Cardiac Surgery: No Cholecystectomy: No Lung Surgery: No Neurologic Surgery: No Orthopedic Surgery: No - Immunization History Immunization Up to Date: Yes - Suicide/Smoking/Psychosocial Hx Smoking Status: No Smoking History: Never smoked Have you smoked in the past 12 months: No Number of Cigarettes Smoked Daily: 0 Information on smoking cessation initiated: No Hx Alcohol Use: No Drug/Substance Use Hx: No Substance Use Type: None Hx Substance Use Treatment: No <Riky Zimmerman - Last Filed: 02/04/18 18:52> <Deyanira Crooks - Last Filed: 02/05/18 05:02> <ScottDavina - Last Filed: 02/07/18 15:56> - Past Medical History Allergies/Adverse Reactions: Allergies Allergy/AdvReac Type Severity Reaction Status Date / Time Penicillins Allergy Mild Verified 02/04/18 17:58 sulfamethoxazole Allergy Mild Verified 02/04/18 17:58 [From Bactrim] trimethoprim [From Bactrim] Allergy Mild Verified 02/04/18 17:58 Home Medications: Ambulatory Orders Oxycodone HCl/Acetaminophen [Percocet 10-325 mg Tablet] 1 each PO Q6H PRN Review of Systems - Review of Systems Able to Perform ROS?: Yes Comments:: 02/04/18 18:52 CONSTITUTIONAL: (+) Decreased sleep. No reported: Fever, Chills, Diaphoresis, Generalized Weakness, Malaise. HEENT: No reported: Rhinorrhea, Nasal Congestion, Throat Pain, Throat Swelling, Difficulty Swallowing, Mouth Swelling, Ear Pain, Eye Pain, Visual Changes CARDIOVASCULAR: No reported: Chest Pain, Syncope, Palpitations, Irregular Heart Rate, Lightheadedness, Peripheral Edema RESPIRATORY: No reported: Cough, Shortness of Breath, SOB with Exertion, Orthopnea, Wheezing , Stridor, Hemoptysis GASTROINTESTINAL: (+) Nausea (+) Vomiting. No reported: Abdominal pain, Abdominal Distension, Diarrhea, Constipation, Melena, Hematochezia GENITOURINARY: No reported: Dysuria, Frequency, Urgency, Hesitancy, Flank Pain, Genital Pain MUSCULOSKELETAL: No reported: Myalgia, Arthralgia, Joint Swelling, Back pain, Neck Pain SKIN: No reported: Rash, Itching, Pallor HEMATOLOGIC/IMMUNOLOGIC: No reported: Easy Bleeding, Easy Bruising, Lymphadenopathy, Frequent infections ENDOCRINE: No reported: Unexplained Weight Gain, Unexplained Weight Loss, Heat Intolerance , Cold Intolerance NEUROLOGIC: (+) Headache. No reported: Focal Weakness, Paresthesias, Vertigo, Lightheadedness, Unsteady Gait, Seizure, Mental Status Changes, Incontinence PSYCHIATRIC: No reported: Anxiety, Depression <Riky Zimmerman - Last Filed: 02/04/18 18:52> *Physical Exam - Vital Signs Last Vital Signs Temp Pulse Resp BP Pulse Ox 98.6 F 96 H 18 165/91 100 02/04/18 17:58 02/04/18 17:58 02/04/18 17:58 02/04/18 17:58 02/04/18 17:58 <Harish Lee - Last Filed: 02/04/18 18:44> - Vital Signs Last Vital Signs Temp Pulse Resp BP Pulse Ox 98.6 F 96 H 18 165/91 100 02/04/18 17:58 02/04/18 17:58 02/04/18 17:58 02/04/18 17:58 02/04/18 17:58 - Physical Exam Comments: 02/04/18 18:52 GENERAL: The patient is awake, alert, and fully oriented, Nontoxic. HEAD: Normocephalic, atraumatic. EYES: extraocular movements intact, sclera anicteric, conjunctiva clear. ENT: Normal voice, Moist mucous membranes. NECK: Normal range of motion, supple LUNGS: Breath sounds equal, clear to auscultation bilaterally. No wheezes, no rhonchi, no rales. HEART: Regular rate and rhythm, without murmur, rub or gallop. ABDOMEN: (+) Abdominal incisions with bony, clean and dry. Nonerythematous. Soft, nontender, No guarding, no rebound.No CVA tenderness EXTREMITIES: Normal range of motion, no edema. No cyanosis. No erythema, or tenderness. NEUROLOGICAL: No facial asymmetry, Normal speech. moving all 4 extremities spontaneously and symmetrically PSYCH: Normal mood, normal affect. SKIN: Warm, Dry, normal turgor. <Riky Zimmerman - Last Filed: 02/04/18 18:52> - Vital Signs Last Vital Signs Temp Pulse Resp BP Pulse Ox 98.6 F 96 H 18 165/91 100 02/04/18 17:58 02/04/18 17:58 02/04/18 17:58 02/04/18 17:58 02/04/18 17:58 <Deyanira Crooks Toni - Last Filed: 02/05/18 05:02> - Vital Signs Last Vital Signs Temp Pulse Resp BP Pulse Ox 98.6 F 96 H 18 165/91 100 02/04/18 17:58 02/04/18 17:58 02/04/18 17:58 02/04/18 17:58 02/04/18 17:58 <Davina Chavez - Last Filed: 02/07/18 15:56> ED Treatment Course - Medications Given in the ED: ED Medications Discontinued Medications Generic Name Dose Route Start Last Admin Trade Name Rylie PRN Reason Stop Dose Admin Metoclopramide HCl 10 mg 02/04/18 18:18 02/04/18 18:42 Reglan Injection - IVPUSH 02/04/18 18:19 10 mg ONCE ONE Administration <Harish Lee - Last Filed: 02/04/18 18:44> - LABORATORY CBC & Chemistry Diagram: 02/04/18 18:31 02/04/18 18:31 <Riky Zimmerman - Last Filed: 02/04/18 18:52> - LABORATORY CBC & Chemistry Diagram: 02/04/18 18:31 02/04/18 20:12 - ADDITIONAL ORDERS Additional order review: Laboratory Results 02/04/18 02/04/18 02/04/18 21:06 20:12 20:12 PT with INR INR Sodium 145 Potassium 3.8 Chloride 111 H Carbon Dioxide 23 Anion Gap 11 BUN 17 Creatinine 1.9 H Creat Clearance w eGFR 28.21 Random Glucose 103 Calcium 10.1 Total Bilirubin 0.3 AST 13 L ALT 17 Alkaline Phosphatase 82 Total Protein 8.0 Albumin 3.2 L Serum , Qual Negative Urine HCG, Qual Negative 02/04/18 02/04/18 20:12 18:31 PT with INR 11.70 INR 1.04 Sodium Cancelled Potassium Cancelled Chloride Cancelled Carbon Dioxide Cancelled Anion Gap Cancelled BUN Cancelled Creatinine Cancelled Creat Clearance w eGFR Cancelled Random Glucose Cancelled Calcium Cancelled Total Bilirubin Cancelled AST Cancelled ALT Cancelled Alkaline Phosphatase Cancelled Total Protein Cancelled Albumin Cancelled Serum , Qual Urine HCG, Qual 02/04/18 18:31 RBC 4.34 MCV 75.1 L MCHC 31.1 L RDW 19.3 H MPV 8.5 Neutrophils % 84.3 H Lymphocytes % 10.1 Monocytes % 3.8 Eosinophils % 1.0 Basophils % 0.8 - Medications Given in the ED: ED Medications Discontinued Medications Generic Name Dose Route Start Last Admin Trade Name Rylie PRN Reason Stop Dose Admin Sodium Chloride 1,000 mls @ 1,000 mls/hr 02/04/18 18:18 02/04/18 18:42 Normal Saline - IV 02/04/18 19:17 1,000 mls/hr .Q1H ONE Administration Magnesium Sulfate 2 gm 02/04/18 19:35 02/04/18 22:15 Magnesium Sulfate IVPB 02/04/18 19:36 2 gm ONCE ONE Administration Metoclopramide HCl 10 mg 02/04/18 18:18 02/04/18 18:42 Reglan Injection - IVPUSH 02/04/18 18:19 10 mg ONCE ONE Administration <Deyanira Crooks - Last Filed: 02/05/18 05:02> - LABORATORY CBC & Chemistry Diagram: 02/04/18 18:31 02/04/18 20:12 - ADDITIONAL ORDERS Additional order review: 02/04/18 18:31 RBC 4.34 MCV 75.1 L MCHC 31.1 L RDW 19.3 H MPV 8.5 Neutrophils % 84.3 H Lymphocytes % 10.1 Monocytes % 3.8 Eosinophils % 1.0 Basophils % 0.8 - Medications Given in the ED: ED Medications Discontinued Medications Generic Name Dose Route Start Last Admin Trade Name Rylie PRN Reason Stop Dose Admin Acetaminophen 975 mg 02/04/18 21:42 02/04/18 23:45 Tylenol - PO 02/04/18 21:43 975 mg ONCE ONE Administration Diphenhydramine HCl 25 mg 02/04/18 23:29 02/04/18 23:55 Benadryl Injection - IVPUSH 02/04/18 23:30 25 mg ONCE ONE Administration Sodium Chloride 1,000 mls @ 1,000 mls/hr 02/04/18 18:18 02/04/18 18:42 Normal Saline - IV 02/04/18 19:17 1,000 mls/hr .Q1H ONE Administration Lactated Ringer's 1,000 ml in 1,000 mls @ 1,000 mls/hr 02/04/18 23:29 00:12 Lactated Ringers Solution IV 02/05/18 00:28 1,000 mls/hr ONCE STA Administration Magnesium Sulfate 2 gm 02/04/18 19:35 02/04/18 22:15 Magnesium Sulfate IVPB 02/04/18 19:36 2 gm ONCE ONE Administration Metoclopramide HCl 10 mg 02/04/18 18:18 02/04/18 18:42 Reglan Injection - IVPUSH 02/04/18 18:19 10 mg ONCE ONE Administration Prochlorperazine Edisylate 10 mg 02/04/18 23:16 02/04/18 23:50 Compazine Injection - IVPB 02/04/18 23:17 10 mg ONCE ONE Administration <Davina Chavez - Last Filed: 02/07/18 15:56> Medical Decision Making - Medical Decision Making 02/04/18 18:19 47y F hx of anemia, diabetes presents with complaing of headache. headache was moderate and was present when she woke up but gradually worsened, associated with nbnb vomiting. pt denies any neck pain, back pain, efver/chills, vision changes,numbness/tingling weakness, but notes some photophobia. no prior history of headaches in the past. pt notes she has not been slieeping very much recently. ddx includes tension headache, migraine, consider possible SAH will obtain blodo work, ct head will give lfluids, reglan will reassess A portion of this note was documented by scribe services under my direction. I have reviewed the details of the note, within reason, and agree with the documentation with the following case summary and management plan written by me 02/04/18 19:01 will sing out to evening team to reassess pt and fu with results <Riky Zimmerman - Last Filed: 02/04/18 18:52> - Medical Decision Making 02/04/18 23:32 Pt w/ persistent severe headache and persitent vomiting after reglan/ivf/ magnseium. Unable to tolerate tylenol. Pt is refusing HCT. States that she is frustrated with medical care and tired of testing. "I just want to feel better." Explained importance of imaging to evaluation for bleeding in brain in setting of persistnet headache and vomiting and encouraged pt to put aside her frustration briefly. Pt refuses. A: persistent headache and vomiting. P: repeat migraine meds continue to attemt to convince pt to get CTH. MD Daksha <Deyanira Crooks - Last Filed: 02/05/18 05:02> *DC/Admit/Observation/Transfer - Attestations Scribe Attestion: 02/04/18 18:44 Documentation prepared by Harish Lee, acting as medical collections specialist for Riky Zimmerman MD. <Harish Lee - Last Filed: 02/04/18 18:44> <Riky Zimmerman - Last Filed: 02/04/18 18:52> <Deyanira Crooks - Last Filed: 02/05/18 05:02> <Davina Chavez - Last Filed: 02/07/18 15:56> Diagnosis at time of Disposition: Dehydration - Discharge Dispostion Disposition: HOME Condition at time of disposition: Stable - Referrals Referrals: Jesus Manuel Hidalgo MD [Primary Care Provider] - - Patient Instructions Printed Discharge Instructions: DI for Dehydration -- Adult Additional Instructions: stay hydrated sleep excedrin for migraines avoid caffiene can take benadryl to help sleep. COntinue post-operative pain medicine and care as instructed by surgery.
[2018-02-04] MEDS ORDERED: METOCLOPRAMIDE HCL INJECTION 10 MG/2 ML VIAL ONE (18:28)
[2018-02-04 18:54] LABS: BASO % 0.8 % (0-2.0); HEMATOCRIT 32.6 % (32.4-45.2); HEMOGLOBIN 10.1 GM/dL (10.7-15.3); LYMPH % 10.1 % (8-40); MCH 23.3 pg (25.7-33.7); MCHC 31.1 g/dl (32.0-36.0); MEAN CELL VOLUME 75.1 fl (80-96); MEAN PLT VOLUME 8.5 fl (7.5-11.1); MONO % 3.8 % (3.8-10.2); NEUT % 84.3 % (42.8-82.8); PLATELET COUNT 472 K/MM3 (134-434); RBC 4.34 M/mm3 (3.60-5.2); RDW 19.3 % (11.6-15.6); WHITE BLOOD COUNT 11.3 K/mm3 (4.0-10.0)
[2018-02-04] MEDS ORDERED: MAGNESIUM SULF 50% (8.12 MEQ/2 ML-1 GM VIAL) IVPB ONE (19:35)
[2018-02-04] MEDS ORDERED: MAGNESIUM SULF 50% (8.12 MEQ/2 ML-1 GM VIAL) ONE (19:51)
[2018-02-04 20:51] LABS: INR 1.04 (0.82-1.09); PROTHROMBIN TIME (PATIENT) 11.7 SEC (9.7-13.0)
[2018-02-04 21:11] LABS: ALBUMIN 3.2 g/dl (3.4-5.0); ANION GAP 11 (8-16); BLOOD UREA NITROGEN 17 mg/dL (7-18); CALCIUM 10.1 mg/dL (8.5-10.1); CHLORIDE 111 mmol/L (98-107); CO2 23 mmol/L (21-32); CREATININE 1.9 mg/dL (0.55-1.02); GLUCOSE,RANDOM 103 mg/dL (74-106); POTASSIUM 3.8 mmol/L (3.5-5.1); SGOT/AST 13 U/L (15-37); SGPT/ALT 17 U/L (12-78); SODIUM 145 mmol/L (136-145)
[2018-02-04 21:13] LABS: ALK PHOS 82 U/L (45-117); BILIRUBIN,TOTAL 0.3 mg/dL (0.2-1.0)
[2018-02-04] MEDS ORDERED: ACETAMINOPHEN 500 MG TABLET (FP) PO ONE (21:42)
[2018-02-04] MEDS ORDERED: PROCHLORPERAZINE INJECTION 10 MG/2 ML VIAL IVPB ONE (23:16)
[2018-02-04] MEDS ORDERED: LACTATED RINGERS SOLUTION 1,000 ML/1,000 ML INFUS.BAG IV STA (23:29)
[2018-02-04] MEDS ORDERED: PROCHLORPERAZINE INJECTION 10 MG/2 ML VIAL ONE (23:54)
[2018-02-04] MEDS ORDERED: ACETAMINOPHEN 325 MG TABLET (FP) ONE (23:54)
== END 2018-02-05 05:25 | disposition home or self-care (01) ==
LOC: JER 17:34
PROC: 3E0337Z Introduction of Electrolytic and Water Balance Substance into Peripheral Vein, Percutaneous Approach (ICD-10-PCS; principal; 2018-02-04)
PROC: 3E033GC Introduction of Other Therapeutic Substance into Peripheral Vein, Percutaneous Approach (ICD-10-PCS; 2018-02-04)
PROC: 3E033GC Introduction of Other Therapeutic Substance into Peripheral Vein, Percutaneous Approach (ICD-10-PCS; 2018-02-04)
PROC: 3E033GC Introduction of Other Therapeutic Substance into Peripheral Vein, Percutaneous Approach (ICD-10-PCS; 2018-02-04)
PROC: 3E033GC Introduction of Other Therapeutic Substance into Peripheral Vein, Percutaneous Approach (ICD-10-PCS; 2018-02-04)
DX: E86.0 Dehydration (principal); D64.9 Anemia, unspecified; J45.909 Unspecified asthma, uncomplicated; E78.5 Hyperlipidemia, unspecified; I69.854 Hemiplegia and hemiparesis following other cerebrovascular disease affecting left non-dominant side
CPT/HCPCS: 36415; 70450-TC; 80053; 82550; 84484; 84703; 85025; 85610; 96361; 96365; 96375; 99282-25; J7030

== ENCOUNTER 2018-11-07 23:34 | Inpatient (IN) | payer OTHER ==
--- NOTE | 2018-11-08 00:53 | PDOC ---
Attending Attestation - Resident Resident Name: Brennen Green - ED Attending Attestation I have performed the following: I have examined & evaluated the patient, The case was reviewed & discussed with the resident, I agree w/resident's findings & plan, Exceptions are as noted - HPI HPI: 11/08/18 00:58 48-year-old female brought in by ambulance for nausea, vomiting, diarrhea 1 day. Past medical history significant for chronic kidney disease, asthma, anemia, kidney stones. Past surgical history hernia repair 2018 and left ureteral stent - Physicial Exam PE: 11/08/18 01:37 obese 48 yo female has c/o nausea,vomiting and diarrhea head ncat neck supple lungs cta b/l cvs [id number] abd mid abd tendereness skin warm and dry neuro axox3 psych anxious - Medical Decision Making 11/08/18 01:40 pt had hernia repair, diff diag includes sbo,gastroenteritis plan cbc,comp,ct scan
[2018-11-08] MEDS ORDERED: FAMOTIDINE 20 MG/50 ML IVPB 20 MG/50 ML MG IVPB ONE ×2 (01:34→01:44)
[2018-11-08] MEDS ORDERED: ONDANSETRON 4 MG/2 ML VIAL IVPUSH ONE (01:39)
[2018-11-08] MEDS ORDERED: SODIUM CHLORIDE 0.9% 500 ML INFUS.BAG IV ONE (01:39)
[2018-11-08] MEDS ORDERED: ONDANSETRON 4 MG/2 ML VIAL ONE (01:44)
--- NOTE | 2018-11-08 02:01 | PDOC ---
History of Present Illness - General Chief Complaint: Nausea/Vomiting Stated Complaint: VOMITING Time Seen by Provider: 11/08/18 00:21 - History of Present Illness Initial Comments: 48 year old female with PMH of chronic pain (on daily percocet) and hernia repair presenting with two days of nausea, vomiting, abdominal pain, and diarrhea. Patient states that she had gradual onset yancey in her stomach the past two days with multiple episodes of bilious vomiting and non bloody diarrhea. Denies fevers, chills, chest pain, or other symptoms. Of note, the interview was slightly derailed when the patient was asked about her percocet usage. She originally stated that she used percocets at least twice a day and she starting running out so she hasn't had any in three days (one day prior to the initiation of the abdominal symptoms). However, when more clarification was asked of the patient, she began to change her story and became very irate. Denies any recent alcohol usage or symptoms. 11/08/18 04:00 0 Past History - Past Medical History Allergies/Adverse Reactions: Allergies Allergy/AdvReac Type Severity Reaction Status Date / Time Penicillins Allergy Mild Verified 02/04/18 17:58 sulfamethoxazole Allergy Mild Verified 02/04/18 17:58 [From Bactrim] trimethoprim [From Bactrim] Allergy Mild Verified 02/04/18 17:58 Home Medications: Ambulatory Orders Oxycodone HCl/Acetaminophen [Percocet 10-325 mg Tablet] 1 each PO Q6H PRN Anemia: Yes Asthma: Yes Cancer: No Cardiac Disorders: No CVA: Yes (2yrs ago-left weakness occas) COPD: No CHF: No Dementia: No Diabetes: No GI Disorders: No Disorders: Yes (KIdney stones) HTN: No Hypercholesterolemia: Yes Liver Disease: No Seizures: No Thyroid Disease: No - Surgical History Abdominal Surgery: Yes (hernia repair last year, umbilical hernia repair 2017) Appendectomy: No Cardiac Surgery: No Cholecystectomy: No Lung Surgery: No Neurologic Surgery: No Orthopedic Surgery: No - Immunization History Immunization Up to Date: Yes - Suicide/Smoking/Psychosocial Hx Smoking Status: No Smoking History: Unknown if ever smoked Have you smoked in the past 12 months: No Number of Cigarettes Smoked Daily: 0 Hx Alcohol Use: No Drug/Substance Use Hx: No Substance Use Type: None Hx Substance Use Treatment: No Review of Systems - Review of Systems Constitutional: No: Chills, Diaphoresis, Fever HEENTM: No: Blurred Vision, Tearing Respiratory: No: Cough, Orthopnea, Shortness of Breath Cardiac (ROS): No: Chest Pain, Edema, Irregular Heart Rate ABD/GI: Yes: Diarrhea, Nausea, Vomiting : No: Dysuria, Discharge Musculoskeletal: No: Back Pain, Gout, Joint Pain Integumentary: No: Erythema, Flushing, Lesions Neurological: No: Headache, Numbness, Paresthesia Psychiatric: No: Anxiety, Depression Hematologic/Lymphatic: No: Anemia, Blood Clots, Easy Bleeding *Physical Exam - Vital Signs Last Vital Signs Temp Pulse Resp BP Pulse Ox 98.7 F 86 20 156/99 100 11/07/18 23:40 11/07/18 23:40 11/07/18 23:40 11/07/18 23:40 11/07/18 23:40 - Physical Exam General Appearance: Yes: Nourished, Appropriately Dressed, Apparent Distress, Mild Distress HEENT: positive: EOMI, KAREN, Normal ENT Inspection, Normal Voice Neck: positive: Trachea midline, Normal Thyroid, Supple. negative: Tender, Rigid Respiratory/Chest: positive: Lungs Clear, Normal Breath Sounds, Respiratory Distress. negative: Chest Tender, Accessory Muscle Use Cardiovascular: positive: Regular Rhythm, Regular Rate Gastrointestinal/Abdominal: positive: Normal Bowel Sounds, Tender (generalized tenderness with slight focality over surgical repair site but no skin/ soft tissue changes), Flat, Soft Lymphatic: negative: Adenopathy, Tenderness Musculoskeletal: positive: Normal Inspection. negative: Decreased Range of Motion Extremity: positive: Normal Capillary Refill, Normal Inspection, Normal Range of Motion. negative: Pelvis Stable Integumentary: positive: Normal Color, Dry, Warm Neurologic: positive: Fully Oriented, Alert, Normal Mood/Affect, Normal Response , Motor Strength 5/5 Moderate Sedation - Procedure Monitoring Vital Signs: Procedure Monitoring Vital Signs Temperature 98.7 F 11/07/18 23:40 Pulse Rate 86 11/07/18 23:40 Respiratory Rate 20 11/07/18 23:40 Blood Pressure 156/99 11/07/18 23:40 O2 Sat by Pulse Oximetry (%) 100 11/07/18 23:40 ED Treatment Course - LABORATORY CBC & Chemistry Diagram: 11/08/18 02:05 11/08/18 02:52 Medical Decision Making - Medical Decision Making 48 year old female with nausea, vomiting, diarrhea and abdominal pain. Highest on our differential s partial sbo vs. sbo vs. narcotic withdrawal. Labs, EKG, and abdominal CT pending on sign out to Dr. Martinez who was gracious enough to take my sign out and continue to provide this patient outstanding care. 11/08/18 04:21 *DC/Admit/Observation/Transfer Diagnosis at time of Disposition: Nausea vomiting and diarrhea Abdominal pain Qualifiers: Abdominal location: generalized Qualified Code(s): R10.84 - Generalized abdominal pain - Discharge Dispostion Disposition: HOME Condition at time of disposition: Improved Decision to Admit order: No - Referrals Referrals: Jesus Manuel Hidalgo MD [Primary Care Provider] - - Patient Instructions - Post Discharge Activity
[2018-11-08 02:24] LABS: BASO % 0.3 % (0-2.0); EOS % 0.2 % (0-4.5); HEMOGLOBIN 11.3 GM/dL (10.7-15.3); MCH 26.6 pg (25.7-33.7); MCHC 33.4 g/dl (32.0-36.0); MEAN CELL VOLUME 79.7 fl (80-96); MEAN PLT VOLUME 8.6 fl (7.5-11.1); MONO % 3.2 % (3.8-10.2); NEUT % 82.3 % (42.8-82.8); PLATELET COUNT 365 K/MM3 (134-434); RBC 4.26 M/mm3 (3.60-5.2); RDW 17.3 % (11.6-15.6); WHITE BLOOD COUNT 9.5 K/mm3 (4.0-10.0)
[2018-11-08 03:29] LABS: INR 1.02 (0.83-1.09)
[2018-11-08 03:32] LABS: ACTIVATED PTT 30.7 SECONDS (25.2-36.5)
[2018-11-08 03:50] LABS: ALBUMIN 3.4 g/dl (3.4-5.0); ALK PHOS 83 U/L (45-117); ANION GAP 6 MMOL/L (8-16); BILIRUBIN,TOTAL 0.2 mg/dL (0.2-1); BLOOD UREA NITROGEN 23 mg/dL (7-18); CALCIUM 9.9 mg/dL (8.5-10.1); CHLORIDE 111 mmol/L (98-107); CO2 23 mmol/L (21-32); CREATININE 2.4 mg/dL (0.55-1.3); GLUCOSE,RANDOM 122 mg/dL (74-106); LIPASE 159 U/L (73-393); SGOT/AST 10 U/L (15-37); SGPT/ALT 13 U/L (13-61); SODIUM 141 mmol/L (136-145); TOT PROT 8.3 g/dl (6.4-8.2)
[2018-11-08] MEDS ORDERED: METOCLOPRAMIDE HCL INJECTION 10 MG/2 ML VIAL ONE (04:33)
[2018-11-08] MEDS ORDERED: METOCLOPRAMIDE HCL INJECTION 10 MG/2 ML VIAL IVPUSH ONE (04:53)
--- NOTE | 2018-11-08 04:53 | PDOC ---
*Physical Exam - Vital Signs Last Vital Signs Temp Pulse Resp BP Pulse Ox 98.7 F 86 20 156/99 100 11/07/18 23:40 11/07/18 23:40 11/07/18 23:40 11/07/18 23:40 11/07/18 23:40 ED Treatment Course - LABORATORY CBC & Chemistry Diagram: 11/08/18 02:05 11/08/18 02:52 - ADDITIONAL ORDERS Additional order review: Laboratory Results 11/08/18 11/08/18 11/08/18 02:58 02:58 02:52 PT with INR 12.00 INR 1.02 PTT (Actin FS) 30.7 Sodium Potassium Chloride Carbon Dioxide Anion Gap BUN Creatinine Creat Clearance w eGFR Random Glucose Lactic Acid Calcium Total Bilirubin Direct Bilirubin AST ALT Alkaline Phosphatase Troponin I Total Protein Albumin Total Amylase Lipase Beta HCG, Quant Serum , Qual Negative Anti-A Titer Blood Type O POSITIVE Antibody Screen Negative 11/08/18 11/08/18 11/08/18 02:52 02:52 02:05 PT with INR INR PTT (Actin FS) Sodium 141 Potassium 4.0 Chloride 111 H Carbon Dioxide 23 Anion Gap 6 L BUN 23 H Creatinine 2.4 H Creat Clearance w eGFR 21.46 Random Glucose 122 H Lactic Acid 1.3 Calcium 9.9 Total Bilirubin 0.2 Direct Bilirubin AST 10 L ALT 13 Alkaline Phosphatase 83 Troponin I < 0.02 Total Protein 8.3 H Albumin 3.4 Total Amylase Lipase 159 Beta HCG, Quant Cancelled Serum , Qual Anti-A Titer Blood Type Antibody Screen 11/08/18 11/08/18 11/08/18 02:05 02:05 02:05 PT with INR Cancelled INR Cancelled PTT (Actin FS) Sodium Cancelled Potassium Cancelled Chloride Cancelled Carbon Dioxide Cancelled Anion Gap Cancelled BUN Cancelled Creatinine Cancelled Creat Clearance w eGFR Cancelled Random Glucose Cancelled Lactic Acid Calcium Cancelled Total Bilirubin Cancelled Direct Bilirubin Cancelled AST Cancelled ALT Cancelled Alkaline Phosphatase Cancelled Troponin I Total Protein Cancelled Albumin Cancelled Total Amylase Cancelled Lipase Cancelled Beta HCG, Quant Serum , Qual Anti-A Titer Cancelled Blood Type Cancelled Antibody Screen Cancelled 11/08/18 02:05 RBC 4.26 MCV 79.7 L MCHC 33.4 RDW 17.3 H MPV 8.6 Neutrophils % 82.3 Lymphocytes % 14.0 D Monocytes % 3.2 L Eosinophils % 0.2 Basophils % 0.3 - RADIOLOGY Radiology Studies Ordered: Category Date Time Status ABDOMEN & PELVIS CT W/O CONTR [CT] Stat CT Scan 11/08/18 04:26 Ordered - Medications Given in the ED: ED Medications Discontinued Medications Generic Name Dose Route Start Last Admin Trade Name Freq PRN Reason Stop Dose Admin Famotidine/Sodium Chloride 20 mg in 50 mls @ 100 mls/hr 11/08/18 01:34 02:10 Pepcid 20 Mg Premixed Ivpb - IVPB 11/08/18 02:03 100 mls/hr ONCE ONE Administration Ondansetron HCl 4 mg 11/08/18 01:39 11/08/18 02:00 Zofran Injection IVPUSH 11/08/18 01:40 4 mg ONCE ONE Administration Sodium Chloride 1,000 ml 11/08/18 01:39 11/08/18 02:05 Normal Saline - IV 11/08/18 01:40 1,000 ml ONCE ONE Administration Medical Decision Making - Medical Decision Making 11/08/18 04:52 Patient signed out pending reevaluation and CT scan results Prior to CT scan patient had multiple episodes of bilious vomiting with no relief after Zofran Labs indicate acute on chronic renal insufficiency Patient sent to CT scan to rule out bowel obstruction with plans for admission pending results *DC/Admit/Observation/Transfer Diagnosis at time of Disposition: Nausea vomiting and diarrhea Abdominal pain Qualifiers: Abdominal location: generalized Qualified Code(s): R10.84 - Generalized abdominal pain - Discharge Dispostion Disposition: HOME Condition at time of disposition: Improved - Referrals Referrals: Jesus Manuel Hidalgo MD [Primary Care Provider] - - Patient Instructions - Post Discharge Activity
[2018-11-08 05:08] LABS: URINE APPEARANCE TURBID; URINE BILIRUBIN NEGATIVE (<2.0 mg/dL); URINE GLUCOSE (UA) NEGATIVE (NEGATIVE); URINE KETONE NEGATIVE (NEGATIVE); URINE LEUK ESTERASE 3+ (NEGATIVE); URINE NITRITE NEGATIVE (NEGATIVE); URINE PROTEIN 2+ (NEGATIVE); URINE UROBILINOGEN NEGATIVE mg/dL (0.2-1.0)
[2018-11-08 05:13] LABS: URINE COLOR YELLOW
[2018-11-08 05:16] LABS: EPI CELLS MANY /HPF (FEW); URINE BACTERIA MANY /hpf (NONE SEEN); URINE MUCUS MANY
[2018-11-08] MEDS ORDERED: MEROPENEM 1 GM in DEXTROSE 5%-WATER 100 ML IVPB ONE (05:49)
--- NOTE | 2018-11-08 06:03 | PDOC ---
*Physical Exam - Vital Signs Last Vital Signs Temp Pulse Resp BP Pulse Ox 98.9 F 84 18 182/89 H 99 11/08/18 05:15 11/08/18 05:15 11/08/18 05:15 11/08/18 05:15 11/08/18 05:15 ED Treatment Course - LABORATORY CBC & Chemistry Diagram: 11/08/18 02:05 11/08/18 02:52 - ADDITIONAL ORDERS Additional order review: Laboratory Results 11/08/18 11/08/18 11/08/18 04:50 02:58 02:58 WBC RBC Hgb Hct MCV MCH MCHC RDW Plt Count MPV Absolute Neuts (auto) Neutrophils % Lymphocytes % Monocytes % Eosinophils % Basophils % Nucleated RBC % PT with INR 12.00 INR 1.02 PTT (Actin FS) 30.7 Sodium Potassium Chloride Carbon Dioxide Anion Gap BUN Creatinine Creat Clearance w eGFR Random Glucose Lactic Acid Calcium Total Bilirubin Direct Bilirubin AST ALT Alkaline Phosphatase Troponin I Total Protein Albumin Total Amylase Lipase Beta HCG, Quant Serum , Qual Urine Color Yellow Urine Appearance Turbid Urine pH 7.0 Ur Specific [place] 1.009 L Urine Protein 2+ H Urine Glucose (UA) Negative Urine Ketones Negative Urine Blood 3+ H Urine Nitrite Negative Urine Bilirubin Negative Urine Urobilinogen Negative Ur Leukocyte Esterase 3+ H Urine WBC (Auto) 288 Urine RBC (Auto) 190 Ur Epithelial Cells Many Urine Bacteria Many Urine Mucus Many Anti-A Titer Blood Type O POSITIVE Antibody Screen Negative 11/08/18 11/08/18 11/08/18 02:52 02:52 02:52 WBC RBC Hgb Hct MCV MCH MCHC RDW Plt Count MPV Absolute Neuts (auto) Neutrophils % Lymphocytes % Monocytes % Eosinophils % Basophils % Nucleated RBC % PT with INR INR PTT (Actin FS) Sodium 141 Potassium 4.0 Chloride 111 H Carbon Dioxide 23 Anion Gap 6 L BUN 23 H Creatinine 2.4 H Creat Clearance w eGFR 21.46 Random Glucose 122 H Lactic Acid 1.3 Calcium 9.9 Total Bilirubin 0.2 Direct Bilirubin AST 10 L ALT 13 Alkaline Phosphatase 83 Troponin I < 0.02 Total Protein 8.3 H Albumin 3.4 Total Amylase Lipase 159 Beta HCG, Quant Serum , Qual Negative Urine Color Urine Appearance Urine pH Ur Specific [place] Urine Protein Urine Glucose (UA) Urine Ketones Urine Blood Urine Nitrite Urine Bilirubin Urine Urobilinogen Ur Leukocyte Esterase Urine WBC (Auto) Urine RBC (Auto) Ur Epithelial Cells Urine Bacteria Urine Mucus Anti-A Titer Blood Type Antibody Screen 11/08/18 11/08/18 11/08/18 02:05 02:05 02:05 WBC RBC Hgb Hct MCV MCH MCHC RDW Plt Count MPV Absolute Neuts (auto) Neutrophils % Lymphocytes % Monocytes % Eosinophils % Basophils % Nucleated RBC % PT with INR INR PTT (Actin FS) Sodium Cancelled Potassium Cancelled Chloride Cancelled Carbon Dioxide Cancelled Anion Gap Cancelled BUN Cancelled Creatinine Cancelled Creat Clearance w eGFR Cancelled Random Glucose Cancelled Lactic Acid Calcium Cancelled Total Bilirubin Cancelled Direct Bilirubin Cancelled AST Cancelled ALT Cancelled Alkaline Phosphatase Cancelled Troponin I Total Protein Cancelled Albumin Cancelled Total Amylase Cancelled Lipase Cancelled Beta HCG, Quant Cancelled Serum , Qual Urine Color Urine Appearance Urine pH Ur Specific [place] Urine Protein Urine Glucose (UA) Urine Ketones Urine Blood Urine Nitrite Urine Bilirubin Urine Urobilinogen Ur Leukocyte Esterase Urine WBC (Auto) Urine RBC (Auto) Ur Epithelial Cells Urine Bacteria Urine Mucus Anti-A Titer Cancelled Blood Type Cancelled Antibody Screen Cancelled 11/08/18 11/08/18 02:05 02:05 WBC 9.5 RBC 4.26 Hgb 11.3 Hct 34.0 MCV 79.7 L MCH 26.6 D MCHC 33.4 RDW 17.3 H Plt Count 365 D MPV 8.6 Absolute Neuts (auto) 7.8 Neutrophils % 82.3 Lymphocytes % 14.0 D Monocytes % 3.2 L Eosinophils % 0.2 Basophils % 0.3 Nucleated RBC % 0 PT with INR Cancelled INR Cancelled PTT (Actin FS) Sodium Potassium Chloride Carbon Dioxide Anion Gap BUN Creatinine Creat Clearance w eGFR Random Glucose Lactic Acid Calcium Total Bilirubin Direct Bilirubin AST ALT Alkaline Phosphatase Troponin I Total Protein Albumin Total Amylase Lipase Beta HCG, Quant Serum , Qual Urine Color Urine Appearance Urine pH Ur Specific [place] Urine Protein Urine Glucose (UA) Urine Ketones Urine Blood Urine Nitrite Urine Bilirubin Urine Urobilinogen Ur Leukocyte Esterase Urine WBC (Auto) Urine RBC (Auto) Ur Epithelial Cells Urine Bacteria Urine Mucus Anti-A Titer Blood Type Antibody Screen 11/08/18 02:05 RBC 4.26 MCV 79.7 L MCHC 33.4 RDW 17.3 H MPV 8.6 Neutrophils % 82.3 Lymphocytes % 14.0 D Monocytes % 3.2 L Eosinophils % 0.2 Basophils % 0.3 - Medications Given in the ED: ED Medications Discontinued Medications Generic Name Dose Route Start Last Admin Trade Name Freq PRN Reason Stop Dose Admin Famotidine/Sodium Chloride 20 mg in 50 mls @ 100 mls/hr 11/08/18 01:34 02:10 Pepcid 20 Mg Premixed Ivpb - IVPB 11/08/18 02:03 100 mls/hr ONCE ONE Administration Metoclopramide HCl 10 mg 11/08/18 04:53 11/08/18 04:50 Reglan Injection - IVPUSH 11/08/18 04:54 10 mg ONCE ONE Administration Ondansetron HCl 4 mg 11/08/18 01:39 11/08/18 02:00 Zofran Injection IVPUSH 11/08/18 01:40 4 mg ONCE ONE Administration Sodium Chloride 1,000 ml 11/08/18 01:39 11/08/18 02:05 Normal Saline - IV 11/08/18 01:40 1,000 ml ONCE ONE Administration Medical Decision Making - Medical Decision Making 11/08/18 06:02 UTI plus edematous left kidney with nephrostomy tube on CT . Will admit to Dr. Nails *DC/Admit/Observation/Transfer Diagnosis at time of Disposition: Nausea vomiting and diarrhea, Pyelonephritis Abdominal pain Qualifiers: Abdominal location: generalized Qualified Code(s): R10.84 - Generalized abdominal pain - Discharge Dispostion Disposition: HOME Condition at time of disposition: Improved Decision to Admit order: Yes - Referrals Referrals: Jesus Manuel Hidalgo MD [Primary Care Provider] - - Patient Instructions - Post Discharge Activity
[2018-11-08 06:17] LABS: COCAINE, UR NEGATIVE ng/ml (CUTOFF=300); METHADONE, UR NEGATIVE ng/ml (CUTOFF=300); OPIATES, URI NEGATIVE ng/ml (CUTOFF=300); PHENCYCLIDINE,URINE NEGATIVE ng/ml (CUTOFF=25); URINE AMPHETAMINES NEGATIVE ng/ml (CUTOFF=500); URINE BARBITURATES NEGATIVE ng/ml (CUTOFF=200); URINE BENZODIAZEPINES NEGATIVE ng/ml (CUTOFF=200)
[2018-11-08] MEDS ORDERED: VANCOMYCIN 1 GM in D5W (PRE-DOCKED) 1,000 MG/250 ML IVPB ONE (06:18)
[2018-11-08] MEDS ORDERED: morphine CARPU-JECT 4 MG/1 ML DISP.SYRIN IVPUSH ONE (06:21)
[2018-11-08] MEDS ORDERED: morphine SULFATE 4 MG/ML VIAL ONE (06:29)
[2018-11-08] MEDS ORDERED: VANCOMYCIN 1 GRAM (PRE-DOCKED) 1,000 MG/250 ML BAG IVPB ONE (06:30)
--- NOTE | 2018-11-08 10:48 | EKG ---
Test Reason : Blood Pressure : / mmHG Vent. Rate : 080 BPM Atrial Rate : 080 BPM P-R Int : 146 ms QRS Dur : 086 ms QT Int : 400 ms P-R-T Axes : 059 -23 -07 degrees QTc Int : 461 ms NORMAL SINUS RHYTHM NONSPECIFIC ST ABNORMALITY ABNORMAL ECG WHEN COMPARED WITH ECG OF 24-JAN-2018 11:53, NO SIGNIFICANT CHANGE WAS FOUND Confirmed by Iglesia rOozco MD ([id number]) on 11/08/2018 10:47:29 AM Referred By: Confirmed By:Iglesia Orozco MD
[2018-11-08] MEDS ORDERED: ALBUTEROL SO4 0.083% IH SOL 2.5 MG/3 ML VIAL.NEB. NEB PRN (11:28)
[2018-11-08] MEDS ORDERED: ONDANSETRON 4 MG/2 ML VIAL IVPUSH PRN (11:32)
[2018-11-08 11:33] VITALS: BMI 40.8
[2018-11-08] MEDS ORDERED: DEXTROSE 5%-0.45% SALINE 1,000 ML IV SCH (11:45)
[2018-11-08] MEDS: MORPHINE SULFATE 2 MG/ML VIAL IVPUSH PRN ×3 (12:18→22:26)
--- NOTE | 2018-11-08 12:52 | CON.ID ---
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 Pulmonary: Yes: Asthma Renal/: Yes: Renal Failure, Renal Calculi ...: No - Past Surgical History Past Surgical History: Yes: Hernia Repair - Alcohol/Substance Use Hx Alcohol Use: No - Smoking History Smoking history: Unknown if ever smoked Have you smoked in the past 12 months: No Aproximately how many cigarettes per day: 0 Home Medications - Allergies Allergies/Adverse Reactions: Allergies Allergy/AdvReac Type Severity Reaction Status Date / Time Penicillins Allergy Intermediate Hives Verified 11/08/18 06:42 sulfamethoxazole Allergy Mild Verified 11/08/18 05:24 [From Bactrim] trimethoprim [From Bactrim] Allergy Mild Verified 11/08/18 05:24 - Home Medications Home Medications: Ambulatory Orders Albuterol 0.083% Nebulizer Keisha [Ventolin 0.083%] 1 neb NEB Q4H PRN 11/08/18 Budesonide/Formeterol Fumarate [SYMBICORT 160/4.5mcg -] 2 puff IH BID 11/08/18 Ferrous Sulfate [Iron] 325 mg PO BID 11/08/18 Oxycodone HCl/Acetaminophen [Oxycodone-Acetaminophen 5-325] 1 each PO Q6H PRN Physical Exam Vital Signs: Vital Signs Temperature 99.0 F 11/08/18 10:00 Pulse Rate 89 11/08/18 10:00 Respiratory Rate 18 11/08/18 10:00 Blood Pressure 149/71 11/08/18 10:00 O2 Sat by Pulse Oximetry (%) 99 11/08/18 05:15 Labs: CBC, BMP 11/08/18 02:05 11/08/18 02:52
[2018-11-08] MEDS: VANCOMYCIN 1 GM in D5W (PRE-DOCKED) 1,000 MG/250 ML IVPB SCH (17:14)
[2018-11-08] MEDS: MEROPENEM 1 GM in DEXTROSE 5%-WATER 100 ML IVPB SCH (17:14)
[2018-11-08] MEDS ORDERED: ACETAMINOPHEN 325 MG TABLET (FP) PO ONE (17:15)
[2018-11-08] MEDS ORDERED: FERROUS SO4 325 MG TABLET (FP) PO SCH (17:30)
[2018-11-08] MEDS ORDERED: METOCLOPRAMIDE HCL INJECTION 10 MG/2 ML VIAL IVPB SCH (19:00)
[2018-11-08] MEDS: ONDANSETRON 4 MG/2 ML VIAL IVPB SCH ×2 (19:19→22:25)
[2018-11-08] MEDS: METOCLOPRAMIDE HCL INJECTION 10 MG/2 ML VIAL IVPB SCH (21:51)
[2018-11-08] MEDS ORDERED: BUDESONIDE/FORMETEROL FUMARATE 160/4.5 mcg INHALER IH SCH (22:00)
[2018-11-08] MEDS ORDERED: PANTOPRAZOLE SODIUM 40 MG VIAL IVPB SCH (22:00)
[2018-11-08] MEDS ORDERED: PANTOPRAZOLE SODIUM 40 MG in SODIUM CHLORIDE 100 ML IVPB SCH (22:00)
[2018-11-08] MEDS ORDERED: HEPARIN NA (PORCINE) 5,000 UNITS/ML 1ML VIAL SQ SCH (22:00)
--- NOTE | 2018-11-08 22:24 | HP ---
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 Renal/: Yes: Renal Failure, Renal Calculi ...: No - Past Surgical History Past Surgical History: Yes: Hernia Repair - Smoking History Smoking history: Unknown if ever smoked Have you smoked in the past 12 months: No Aproximately how many cigarettes per day: 0 - Alcohol/Substance Use Hx Alcohol Use: No Home Medications - Allergies Allergies/Adverse Reactions: Allergies Allergy/AdvReac Type Severity Reaction Status Date / Time Penicillins Allergy Intermediate Hives Verified 11/08/18 06:42 sulfamethoxazole Allergy Mild Verified 11/08/18 05:24 [From Bactrim] trimethoprim [From Bactrim] Allergy Mild Verified 11/08/18 05:24 - Home Medications Home Medications: Ambulatory Orders Albuterol 0.083% Nebulizer Keisha [Ventolin 0.083%] 1 neb NEB Q4H PRN 11/08/18 Budesonide/Formeterol Fumarate [SYMBICORT 160/4.5mcg -] 2 puff IH BID 11/08/18 Ferrous Sulfate [Iron] 325 mg PO BID 11/08/18 Oxycodone HCl/Acetaminophen [Oxycodone-Acetaminophen 5-325] 1 each PO Q6H PRN Physical Examination Vital Signs: Vital Signs Temperature 99.0 F 11/08/18 10:00 Pulse Rate 89 11/08/18 10:00 Respiratory Rate 18 11/08/18 10:00 Blood Pressure 149/71 11/08/18 10:00 O2 Sat by Pulse Oximetry (%) 98 11/08/18 10:00 Labs: CBC, BMP 11/08/18 02:05 11/08/18 02:52
[2018-11-09] MEDS: MEROPENEM 1 GM in DEXTROSE 5%-WATER 100 ML IVPB SCH (01:48)
[2018-11-09] MEDS: METOCLOPRAMIDE HCL INJECTION 10 MG/2 ML VIAL IVPB SCH (02:10)
[2018-11-09] MEDS: ONDANSETRON 4 MG/2 ML VIAL IVPB SCH ×2 (02:44→06:15)
[2018-11-09] MEDS: VANCOMYCIN 1 GM in D5W (PRE-DOCKED) 1,000 MG/250 ML IVPB SCH (05:45)
[2018-11-09] MEDS ORDERED: ONDANSETRON 4 MG/2 ML VIAL IVPB PRN (06:50)
[2018-11-09 07:33] LABS: BASO % 0.3 % (0-2.0); EOS % 1.1 % (0-4.5); HEMATOCRIT 28.5 % (32.4-45.2); HEMOGLOBIN 9.3 GM/dL (10.7-15.3); LYMPH % 30.1 % (8-40); MCH 26.1 pg (25.7-33.7); MCHC 32.7 g/dl (32.0-36.0); MEAN CELL VOLUME 79.9 fl (80-96); MEAN PLT VOLUME 8.5 fl (7.5-11.1); MONO % 9.2 % (3.8-10.2); NEUT % 59.3 % (42.8-82.8); PLATELET COUNT 308 K/MM3 (134-434); RBC 3.56 M/mm3 (3.60-5.2); RDW 17.8 % (11.6-15.6); WHITE BLOOD COUNT 6.4 K/mm3 (4.0-10.0)
[2018-11-09 07:58] LABS: ALK PHOS 66 U/L (45-117); ANION GAP 6 MMOL/L (8-16); BILIRUBIN,TOTAL 0.4 mg/dL (0.2-1); BLOOD UREA NITROGEN 18 mg/dL (7-18); CALCIUM 9.4 mg/dL (8.5-10.1); CHLORIDE 111 mmol/L (98-107); CO2 23 mmol/L (21-32); CREATININE 2.5 mg/dL (0.55-1.3); GLUCOSE,RANDOM 90 mg/dL (74-106); POTASSIUM 3.8 mmol/L (3.5-5.1); SGOT/AST 6 U/L (15-37); SGPT/ALT 12 U/L (13-61); SODIUM 140 mmol/L (136-145)
[2018-11-09 08:17] VITALS: BP 135/62; PULSE 66; TEMP 97.9
[2018-11-09] MEDS ORDERED: VANCOMYCIN 1 GRAM (PRE-DOCKED) 1,000 MG/250 ML BAG IVPB SCH (18:00)
== END 2018-11-09 09:36 | disposition left against medical advice (07) | DRG 463 ==
LOC: JER 23:34 → JERBED 11-08 06:03 → J6S 11-08 08:57
PROVIDERS: ADMIT Internal Medicine; ATTEND Internal Medicine
DX: N12 Tubulo-interstitial nephritis, not specified as acute or chronic (principal); G89.29 Other chronic pain; Z68.41 Body mass index [BMI] 40.0-44.9, adult; E66.9 Obesity, unspecified; Z88.0 Allergy status to penicillin
CPT/HCPCS: 36415; 74176-TC; 80053; 80307; 81003; 81015; 83605; 83690; 84484; 84703; 85025; 85610; 85730; 86850; 86900; 86901; 87086; 87186; 93005; 93010; 99282-25; J1644